=== PATIENT | female | born 1955 | race Caucasian/White ===

== ENCOUNTER → 2023-11-01 09:21 | Outpatient (CLI) | payer MEDICARE, BC, SELFPAY ==
--- NOTE | ~2023-11-01 | MMUS_ITS ---
EXAMINATION: MM diagnostic sandie BI w selma, US breast BI complete HISTORY: Bilateral breast pain for 6 months; history of 3 bilateral benign breast biopsies TECHNIQUE: ML, MLO and CC spot and full field 3-D tomosynthesis images of both breasts were performed and synthetic 2-D images were generated. CAD analysis was submitted and interpreted. High resolution complete bilateral breast ultrasound examination including all 4 quadrants and subareolar areas was performed. COMPARISON: None BREAST PARENCHYMAL COMPOSITION: There are scattered areas of fibroglandular density. FINDINGS: MAMMOGRAPHIC FINDINGS: Clips are noted in the upper mid left breast with nearby architectural distortion and calcification o f fat necrosis most consistent with post-biopsy change. Biopsy marker is noted in the upper outer right breast. Scattered bilateral benign calcifications. Approximately 7 mm partially circumscribed mass is noted in the anterior aspect of the upper outer qu adrant of the right breast with nearby biopsy marker. Low-density circumscribed approximately 5.6 mm opacity is noted posteriorly in the lower inner quadra nt of the left breast. ULTRASOUND: Right breast: 1:00 6 cm from nipple: 9.4 x 9.5 mm circumscribed irregular mass with prominent common flow signal/in ternal vascularity. No posterior shadowing is noted. 11:00 6 cm from nipple: Parallel circumscribed hypoechoic 4.5 x 8 x 7.2 mm mass with internal vascula rity, no posterior shadowing Left breast: 12:00 6 cm from nipple: There is some irregularity without defined mass or internal vascularity, like ly postbiopsy scarring 11:00 7 cm from nipple: Rounded 2.7 mm sonolucent lesion without internal vascularity or posterior sh adowing, most likely benign 2:00 6 cm from nipple: 2 x 2.3 x 2.7 mm circumscribed hypoechoic lesion without internal vascularity or posterior shadowing. IMPRESSION: 1. Bilateral mammographic and sonographic findings 2. Comparison with prior breast imaging examinations including any available mammograms and ultrasoun d examinations is recommended BI-RADS Category 0: Incomplete: Needs additional imaging evaluation. Reviewed, dictated and finalized at location A. C PASTOR IMPRESSION: 1. Bilateral mammographic and sonographic findings 2. Comparison with prior breast imaging examinations including any available ma mmograms and ultrasound examinations is recommended BI-RADS Category 0: Incomplete: Needs additional imaging evaluation.
== END ==
PROVIDERS: PCP Family Medicine; Visit Provider Physician Assistant
DX: N64.4 Mastodynia (principal); R92.8 Other abnormal and inconclusive findings on diagnostic imaging of breast
CPT/HCPCS: 76641; 77062; 77066; G0279

== ENCOUNTER 2023-11-17 10:32 | Outpatient (CLI) | payer MEDICARE, BC, SELFPAY ==
--- NOTE | ~2023-11-17 | MR_ITS ---
MR breast BI wo/w con 11/17/2023 16:08 CDT INDICATION: Abnormal right breast masses seen on prior ultrasound and mammogram. TECHNIQUE: MRI of the breasts perform using standard protocol pre-and post IV contrast with the follo wing sequences: Axial T2 STIR, axial T1, axial vibrant T1 with fat suppression precontrast and multip hasic postcontrast. 20 cc MultiHance administered intravenously. COMPARISON: Comparison to multiple prior studies sequentially, with oldest reviewed study dated 09/23. FINDINGS: Right breast: There are no abnormalities on the precontrast sequences. There is moderate background p arenchymal enhancement. In the upper outer quadrant of the right breast there is an irregular shaped mass which is hyperintense on T2 and hypointense on T1 with heterogeneous rapid washout enhancement. This mass located 7.6 cm posterior to the nipple at 11:00, middle third of the breast and measures 1. 7 x 1.7 x 1.3 cm. This is likely a conglomerate finding of the 2 masses described by prior ultrasound at 11:00, 6 cm from the nipple on prior study. In the upper inner quadrant of the right breast is a focal area of decreased T1 and T2 signal with ra pid washout enhancement. This enhancement is not mass like measuring 10 x 7 x 7 mm with irregular kareen ear shape, most likely benign vascular enhancement. No evidence of signal abnormalities in the axillary or internal mammary node distributions. LEFT BREAST: No signal abnormalities on precontrast sequences. There is moderate background parenchy mal enhancement. No enhancing lesions following contrast administration. No areas of enhancement m eeting threshold criteria on CAD analysis. No evidence of signal abnormalities in the axillary or i nternal mammary node distributions.] IMPRESSION: 1: Right breast: Irregular shaped abnormally enhancing mass of the right breast located in the upper outer quadrant at approximately 11:00 measuring up to 1.7 cm. This likely corresponds to adjacent ma sses seen on prior ultrasound dated 11/01/2023. Recommend ultrasound-guided right breast biopsies of these masses. Serpiginous somewhat linear enhancement in the upper inner quadrant of the right breast is likely benign vascular calcification. 2: Left breast: Negative. No evidence of malignancy. BI-RADS category 2. Recommend annual mammogr aphy follow-up. BI-RADS CATEGORY 4-SUSPICIOUS ABNORMALITY RECOMMENDATION: Ultrasound-guided right breast biopsies recommended of separate masses located at 11: 00, 6 cm from the nipple. Reviewed, dictated and finalized at location A. IMPRESSION: 1: Right breast: Irregular shaped abnormally enhancing mass of the right breas t located in the upper outer quadrant at approximately 11:00 measuring up to 1. 7 cm. This likely corresponds to adjacent masses seen on prior ultrasound dated 11/01/2023. Recommend ultrasound-guided right breast biopsies of these masses. Serpiginous somewhat linear enhancement in the upper inner quadrant of the rig ht breast is likely benign vascular calcification. 2: Left breast: Negative. No evidence of malignancy. BI-RADS category 2. Re commend annual mammography follow-up. BI-RADS CATEGORY 4-SUSPICIOUS ABNORMALITY RECOMMENDATION: Ultrasound-guided right breast biopsies recommended of separate masses located at 11:00, 6 cm from the nipple.
== END 2023-11-17 10:33 | disposition home or self-care (01) ==
PROVIDERS: PCP Family Medicine; Visit Provider Surgery
DX: N63.11 Unspecified lump in the right breast, upper outer quadrant (principal); R92.8 Other abnormal and inconclusive findings on diagnostic imaging of breast; N60.99 Unspecified benign mammary dysplasia of unspecified breast; F17.210 Nicotine dependence, cigarettes, uncomplicated; Z98.890 Other specified postprocedural states; Z80.3 Family history of malignant neoplasm of breast
CPT/HCPCS: 77049; A9577; C8908

== ENCOUNTER 2024-02-09 08:33 | Outpatient (CLI) | payer MEDICARE, BC, SELFPAY ==
[2023-12-16 10:17] LABS: Basophils Absolute Auto 0.1 K/mm3 (0.0-0.1); Basophils Percent Auto 1.2 % (0.2-1.2); Eosinophils Percent Auto 0.6 % (0-4.4); Hematocrit 38.5 % (37.0-47.0); Hemoglobin 13.1 g/dL (12.0-15.0); Immature Granulocyte Absolute 0.02 K/mm3 (0.00-0.031); Immature Granulocyte Percent A 0.4 % (0-0.5); Immature Platelet Fraction Pct 17.8 % (0.9-11.2); Lymphocytes Absolute Auto 1.31 K/mm3 (0.9-3.2); Lymphocytes Percent Auto 25.2 % (18.3-44.2); Mean Corpuscular Hemoglobin 33.5 pg (26-34); Mean Corpuscular Volume 98.5 fl (80-100); Mean Platelet Volume 13.2 fl (7.4-10.4); Monocytes Absolute Auto 0.5 K/mm3 (0.1-0.6); Monocytes Percent Auto 9.4 % (2.6-8.5); Neutrophils Absolute Auto 3.3 K/mm3 (1.3-6.7); Neutrophils Percent Auto 63.2 % (45.5-73.1); Platelet Count Result 157 k/mm3 (150-375); Red Blood Count 3.91 M/mm3 (4.2-5.4); Red Cell Distribution Width 14.3 % (11.5-14.5); White Blood Count 5.2 K/mm3 (4.5-10.0)
[2023-12-16 10:31] LABS: Albumin Level 4.1 g/dL (3.5-5.1); Anion Gap 7 mmol/L (4-12); Aspartate Amino Transferase 17 U/L (14-36); Calcium 9.3 mg/dL (8.4-10.2); Carbon Dioxide 26 mmol/L (22-30); Chloride 109 mmol/L (98-107); Glucose 90 mg/dL (65-110); HDL Direct 39 mg/dL; Sodium 142 mmol/L (137-145)
[2023-12-16 10:42] LABS: LDL Cholesterol Direct 65 mg/dL
[2023-12-16 11:07] LABS: Hemoglobin A1C 4.7 % (<5.7)
[2023-12-16 11:08] LABS: Alanine Aminotransferase 13 U/L (6-35); Alkaline Phosphatase 114 U/L (38-126); Blood Urea Nitrogen 13 mg/dL (7-17); Cholesterol 117 mg/dL (0-200); Estimated Glomerular Filt Rate 49; Potassium 4.3 mmol/L (3.4-5.0); Triglycerides 120 mg/dL (<150)
--- NOTE | ~2024-02-09 | MMUS_ITS ---
US breast biopsy RT w image, MM post biopsy diagnostic RT EXAMINATION: US GUIDED NEEDLE BIOPSY WITH VACUUM ASSISTANCE DATE: 02/09/2024 10:06 CDT INDICATION: Right breast masses seen on prior examination. Ultrasound-guided core biopsy is requeste d to evaluate for malignancy. TECHNIQUE AND FINDINGS: The risks and potential benefits of the procedure were discussed with the patient, and written inform ed consent was obtained. After sterile preparation of the right breast, 1% lidocaine was utilized fo r local anesthesia. 1% lidocaine with epinephrine was used for deep anesthesia. There are 2 contiguous masses in the right breast at 11:00, 6 cm from the nipple. Both nodules were b iopsied at the same time. A 10G vacuum-assisted biopsy gun needle was advanced through to the outer e dge of the region of interest from a superior approach utilizing sonographic guidance. A total of 4 tissue core samples were obtained through the lesion. An Inrad tissue marker clip was then placed at the biopsy site. Hemostasis was achieved. The patient tolerated procedure well and there was no evidence of immediate complication. The patien t was given verbal instructions partly is from the department. Right breast mammograms to document t issue marker clip placement. The tissue samples were submitted to surgical pathology for histologic a nalysis. IMPRESSION: 1. Successful ultrasound-guided vacuum-assisted biopsy of right breast mass with tissue marker place ment. Please refer to pathology report for histologic analysis. Reviewed, dictated and finalized at location B. IMPRESSION: 1. Successful ultrasound-guided vacuum-assisted biopsy of right breast mass wi th tissue marker placement. Please refer to pathology report for histologic alex lysis.
--- NOTE | ~2024-02-09 | US_ITS ---
US breast LT limited 02/09/2024 08:59 Indication: Second look evaluation of shadowing area in the left breast Procedure: High-resolution Limited ultrasound of the left breast Comparison: MRI dated 11/17/2023 and diagnostic mammogram dated 11/01/2023 Findings: At 11:00, 7 cm from the nipple there is irregular shadowing with associated calcification i n the area of previous surgical scar. This corresponds to stable architectural distortion seen on sandie mogram, consistent with postoperative change.. No other discrete masses are identified. Impression: 1: Irregular shadowing with associated calcification at the 11:00 position of the left breast, 7 cm f rom the nipple. This corresponds to a surgical scar from previous benign biopsy. BI-RADS CATEGORY 2 - BENIGN FINDINGS Reviewed, dictated and finalized at location B. Impression: 1: Irregular shadowing with associated calcification at the 11:00 position of t he left breast, 7 cm from the nipple. This corresponds to a surgical scar from previous benign biopsy. BI-RADS CATEGORY 2 - BENIGN FINDINGS
== END 2024-02-09 08:34 | disposition home or self-care (01) ==
PROVIDERS: PCP Family Medicine; Referring Provider Physician Assistant; Visit Provider Surgery
DX: D49.3 Neoplasm of unspecified behavior of breast (principal); I10 Essential (primary) hypertension; R73.9 Hyperglycemia, unspecified; E78.5 Hyperlipidemia, unspecified; Z72.0 Tobacco use
CPT/HCPCS: 19083; 36415; 76642; 77065; 80053; 80061; 83036; 85025; 85055; 88305; 88342; A4648

== ENCOUNTER 2024-02-23 16:08 | Outpatient (CLI) | payer MEDICARE, BC, SELFPAY ==
[2024-02-23 16:22] LABS: Kit Draw Collected
== END 2024-02-23 16:09 | disposition home or self-care (01) ==
LOC: ANHLAB 16:10
PROVIDERS: Visit Provider Internal Medicine Hematology & Oncology
DX: C50.911 Malignant neoplasm of unspecified site of right female breast (principal)
CPT/HCPCS: 36415

== ENCOUNTER 2024-04-28 09:01 | Outpatient (CLI) | payer MEDICARE, BC, SELFPAY ==
--- NOTE | 2024-04-28 09:11 | ECG_ITS ---
Test Date: 2024-04-28 09:16:50 Measurements Intervals Cougar Rate: 75 P: 52 MD: 167 QRS: -6 QRSD: 86 T: 9 QT: 350 QTc: 393 Interpretive Statements SINUS RHYTHM LOW QRS VOLTAGE IN PRECORDIAL LEADS [QRS DEFLECTION < 1.0 mV IN CHEST LEADS] POSSIBLE ANTERIOR MYOCARDIAL INFARCTION [30 ms Q WAVE IN V3/V4, OR R < 0.2 mV IN V4], PROBABLY OLD No previous ECG available for comparison Electronically Signed On 04-29-2024 14:21:14 CDT by Koen iVctor M.D.
[2024-04-28 09:30] LABS: Hematocrit 36.5 % (37.0-47.0); Hemoglobin 12.5 g/dL (12.0-15.0)
== END 2024-04-28 09:02 | disposition home or self-care (01) ==
PROVIDERS: Anesthesiology; PCP Family Medicine; Visit Provider Surgery
DX: Z01.818 Encounter for other preprocedural examination (principal); C50.911 Malignant neoplasm of unspecified site of right female breast; I10 Essential (primary) hypertension
CPT/HCPCS: 36415; 85014; 85018; 86850; 86900; 86901; 93005

== ENCOUNTER 2024-05-10 07:07 | Outpatient (CLI) | payer MEDICARE, BC, SELFPAY ==
--- NOTE | ~2024-05-10 | NM_ITS ---
EXAMINATION: NM gee stress w perfusion DATE: 05/10/2024 09:45 INDICATION: Abnormal EKG TECHNIQUE: Rest images were obtained following intravenous administration of 11.3 mCi Tc99m tetrofosm in (Myoview). The patient was infused intravenously with Lexiscan (Regadenoson). Then, 35 mCi Tc99m t etrofosmin (Myoview) was administered intravenously, and stress images were obtained. Data was recons tructed into short axis and horizontal and vertical long axis SPECT images. Gated SPECT images were a lso obtained. COMPARISON: None. FINDINGS: There is no definite reversible or fixed perfusion abnormality to suggest ischemia or infar ction. There is normal left ventricular chamber size, wall motion and ejection fraction. Left ventr icular ejection fraction measures >70%. IMPRESSION: 1. Normal myocardial perfusion at rest and during stress. 2. Left ventricular ejection fraction measuring >70%. Reviewed, dictated and finalized at location B.
--- NOTE | 2024-05-10 07:13 | EST_ITS ---
Patient Info Name: Claudio Negrete Age: 68 years : 1955 Gender: Female Ht: 64 in Wt: 239 lbs BSA: 2.27 m2 HR: 54 bpm BP: 175 / 73 mmHg Exam Date: 05/10/2024 8:01 AM Exam Location: Echo Lab Patient Status: Outpatient Admit Date: 05/10/2024 Staff Ordering Physician: Zamzam Amezcua PA-C Attending Provider: Zamzam Amezcua PA-C Exercise Technologist: Siria Mendiola RDCS Exercise Physician: Felix Carey DO Exam Type: CA stress gee w NM Study Info A regadenoson stress test was performed. Summary 1. 1. Negative lexiscan stress test for ischemic ST changes by ECG criteria. 2. 2. Baseline hypertension. 3. 3. Nuclear scan to follow and will be reported separately. Please correlate with it. 4. 4. Patient informed of the above results. Protocol: Lexiscan Stress ECG Details Stage: REST Duration (min): 9 min : 28 sec HR (bpm): 56 SBP (mmHg): 175 DBP (mmHg): 73 Stage: REST Duration (min): 14 min : 3 sec HR (bpm): 67 SBP (mmHg): 175 DBP (mmHg): 73 Stage: STAGE 1 Duration (min): 0 min : 59 sec HR (bpm): 96 SBP (mmHg): 171 DBP (mmHg): 103 Stage: RECOVERY Duration (min): 1 min : 0 sec HR (bpm): 100 SBP (mmHg): 171 DBP (mmHg): 103 Stage: RECOVERY Duration (min): 2 min : 0 sec HR (bpm): 101 SBP (mmHg): 171 DBP (mmHg): 103 Stage: RECOVERY Duration (min): 3 min : 0 sec HR (bpm): 98 SBP (mmHg): 174 DBP (mmHg): 97 Stage: RECOVERY Duration (min): 3 min : 24 sec HR (bpm): 93 SBP (mmHg): 174 DBP (mmHg): 97 Rest HR: 67 bpm Peak HR: 106 bpm Rest Sys BP: 175 mmHg Peak Sys BP: 174 mmHg Max Pred HR: 150 bpm % Max Pred HR: 71 % Target HR: 128 bpm Max RPP: 18,444 bpm*mmHg Termination Reason: Completed protocol Cardiac Symptoms: Shortness of breath Total Time: 1 min : 0 sec Rest Emerson BP: 73 mmHg Peak Emerson BP: 97 mmHg Total Dose: 0.4 mg Resting ECG Sinus rhythm. Stress ECG No ST changes. Arrhythmias None. Report Signatures
== END 2024-05-10 07:08 | disposition home or self-care (01) ==
PROVIDERS: PCP Family Medicine; Visit Provider Physician Assistant
DX: R94.31 Abnormal electrocardiogram [ECG] [EKG] (principal); I10 Essential (primary) hypertension
CPT/HCPCS: 78452; 93017; A9502; J2785

== ENCOUNTER 2024-05-16 00:55 | Day surgery (SDC) | payer MEDICARE, BC, SELFPAY ==
--- NOTE | 2024-04-27 12:13 | PC.NURSE ---
Report to the Outpatient Waiting Room, entrance under the green pavilion located off [facility], at time _7:00 AM on date 05/03/24 . Planned Procedure Time: _9:00 AM .? NUCLEAR MED AT 8:00 AM Time changes happen often and if your time is changed the preop area will call you the afternoon before. - You and your visitor will be asked to self-screen and do not enter if you have any COVID symptoms. Please call surgeon if you need to reschedule. - A mask is optional within the hospital at this time. NOTHING TO EAT OR DRINK 8 PRIOR TO SURGERY PER DR YADAV (0100) Take only the following medications with a SIP of water on the morning of surgery: __NONE DO NOT STOP ANY OF YOUR OTHER PRESCRIPTION MEDICATIONS PRIOR TO SURGERY EXCEPT THE FOLLOWING Medications to discontinue per physician __PT STATES HOLD ASPIRIN PER DR STEVENS LAST DOSE 04/16/24. HOLD ALL VITAMINS 3 DAYS PRE OP .LAST DOSE 04/29/24 Please no make-up, nail bulgarian, hairspray, perfume, deodorant, or body powder the day of surgery.? No jewelry (including any body piercings) or valuables the day of surgery, leave them at home.? Please take a shower or bath the night before, or the morning of, surgery with an antibacterial soap.? Wear comfortable, loose fitting clothing.? Children are encouraged to wear pajamas. - Jewelry must be removed prior to entering the operating room.? Rings and piercings that are not removed may be cut off. - The hospital will not accept responsibility for valuables.? - Please leave all valuables, including medications, at home the day of surgery. If you are going home after surgery, a licensed straddle bug driver must drive you home.? - NO public transportation without another adult if you receive anesthesia. - We recommend that an adult stay with you for 24 hours following discharge. - We also recommend that you do not drive, make important decision, drink alcoholic beverages, or take any drugs that were not prescribed by your health care provider for at least 24 hours after your discharge time. . Follow any additional instructions given to you from your surgeon. Telephone instructions given to __PATIENT and asked if any additional questions and then verbalized understanding. Patient advised to call surgeon office or pre surgery nurse liaison [phone] if any additional questions.
[2024-04-27 12:25] VITALS: BMI 41.0
--- NOTE | 2024-05-08 10:11 | PC.NURSE ---
Report to the Outpatient Waiting Room, entrance under the green pavilion located off [facility], at time _7 AM on date _05/16/24 . Planned Procedure Time: _9 AM .? NUCLEAR MED AT 0800 Time changes happen often and if your time is changed the preop area will call you the afternoon before. - You and your visitor will be asked to self-screen and do not enter if you have any COVID symptoms. Please call surgeon if you need to reschedule. - A mask is optional within the hospital at this time. Patients may have clear liquids (water, carbonated beverages, clear teas, apple juice) until 3 hours prior to surgery with a maximum of 20 ounces. - No food from midnight until time of surgery and no smoking - Infants may have breast milk until 4 hours before surgery, infant formula 6 hours prior to surgery. - Children will be allowed to drink immediately following surgery.? If applicable, please bring a bottle or sippy cup to assist with drinking. Juice, water, soda, and popsicles are readily available.? For infants on formula, please bring formula the day of surgery.? Pacifiers are allowed. Take only the following medications with a SIP of water on the morning of surgery: ____NONE DO NOT STOP ANY OF YOUR OTHER PRESCRIPTION MEDICATIONS PRIOR TO SURGERY EXCEPT THE FOLLOWING Medications to discontinue per physician _PT STATES HOLD ASPIRIN 7 DAYS PRE OP PER DR STEVENS.LAST DOSE 05/08/24 HOLD ALL VITAMINS 3 DAYS PRE OP .LAST DOSE 05/12/24 Please no make-up, nail ukrainian, hairspray, perfume, deodorant, or body powder the day of surgery.? No jewelry (including any body piercings) or valuables the day of surgery, leave them at home.? Please take a shower or bath the night before, or the morning of, surgery with an antibacterial soap.? Wear comfortable, loose fitting clothing.? Children are encouraged to wear pajamas. - Jewelry must be removed prior to entering the operating room.? Rings and piercings that are not removed may be cut off. - The hospital will not accept responsibility for valuables.? - Please leave all valuables, including medications, at home the day of surgery. If you are going home after surgery, a licensed new autos delivery driver must drive you home.? - NO public transportation without another adult if you receive anesthesia. - We recommend that an adult stay with you for 24 hours following discharge. - We also recommend that you do not drive, make important decision, drink alcoholic beverages, or take any drugs that were not prescribed by your health care provider for at least 24 hours after your discharge time. For Pediatric surgeries, we recommend two adults accompany the child home. Follow any additional instructions given to you from your surgeon. Telephone instructions given to __PT and asked if any additional questions and then verbalized understanding. Patient advised to call surgeon office or pre surgery nurse liaison [phone] if any additional questions.
--- NOTE | 2024-05-08 10:13 | PC.NURSE ---
PT STATES NO CHANGE IN HEALTH HX SINCE LAST INTERVIEW ON 04/27/24
--- NOTE | 2024-05-15 19:29 | WPDANESEPPF ---
Anes - Initial Pre Proc Eval Procedure: Operation Date: 05/16/24 07:30 Proposed Procedures p Right Total Mastectomy, Prophylactic Left Mastectomy, Right [place] Lymph Node Biopsy with Lymphoseek, Possible Methylene Blue Injection for [place] Node Mapping, - Giovana Espinoza MD s Bilateral Breast Immediate Prepectoral Implant Reconstruction with Acellular Dermal Matrix, Possible Bilateral Tissue Workcell Operator Placement - Duran Roldan MD Date/Time: 05/15/24 19:29 Surgeon: Giovana Espinoza MD Pre Op Diagnosis: right breast CA Patient Data Age: 68 Gender: F Height: 1.63 m Weight: 108.45 kg Last Vital Signs Temp 36.2 C L 05/16/24 07:39 Pulse 80 05/16/24 07:39 Resp 16 05/16/24 07:39 BP 148/84 H 05/16/24 07:39 Pulse Ox 98 05/16/24 07:39 O2 Del Method Room Air 05/16/24 07:39 Allergies Allergy/AdvReac Type Severity Reaction Status Date / Time tramadol Allergy Intermediate Hives Verified 05/16/24 07:48 propoxyphene Allergy Unknown Hives Verified 05/16/24 07:46 Home Medications Medication Instructions Recorded Confirmed Type omeprazole 40 mg capsule,delayed See Rx Instructions .Route 03/15/24 05/08/24 Rx release .COMPLEX #180 caps losartan 50 mg tablet See Rx Instructions .Route 04/07/24 05/08/24 Rx .COMPLEX #90 tabs aspirin 81 mg tablet,delayed 81 mg PO DAILY 04/27/24 05/16/24 History release (Adult Low Dose Aspirin) atorvastatin 40 mg tablet 40 mg PO HS 04/27/24 05/08/24 History multivitamin (Daily Multi-Vitamin 1 tablet PO DAILY 04/27/24 05/16/24 History tablet) cephalexin 500 mg capsule 500 mg PO Q8H #21 caps 05/16/24 Rx hydrocodone 5 mg-acetaminophen 325 1 tablet PO Q6H PRN pain #16 tabs 05/16/24 Rx mg tablet Patient hx anesthesia problems: post op nausea/vomiting Family hx anesthesia problems: none Results Review: All pre-operative results and documents have been reviewed as part of the pre-operative evaluation. [facility] Past Medical History Medical History Benign essential HTN Cerebral atherosclerosis Chronic pain of left knee CVA, old, cognitive deficits Essential (primary) hypertension Facial weakness S/P CVA (cerebrovascular accident) Hypoxemia MDD (major depressive disorder), recurrent episode, mild Mixed hyperlipidemia LENNIE (obstructive sleep apnea) Other chronic pain Primary osteoarthritis of both knees Tobacco abuse Tobacco user Surgical History Surgical History Hx of total knee arthroplasty Family History Family History Father Diabetes mellitus Family history of malignant neoplasm, Onset Age: 84 Mother Hypertension Patient's mother is in good health Family history of cardiovascular disease Family history of arthritis Family history of malignant neoplasm Heart disease Cerebrovascular accident Sibling Hypertension Patient's sister is , Onset Age: 43 Patient's brother is in good health Patient's brother is , Onset Age: 22 Family history of cardiovascular disease Grandparent Breast cancer Diabetes mellitus Hypertension Heart disease Throat cancer Social History Social History Social History: Smoking packs per day: 2 Smoking cigarettes per day: 40.0 Years smoked: 25 Smoking pack-years: 50.00 Smoking status: Former smoker Tobacco type: cigarettes Second hand tobacco smoke exposure: No Smoking end date: 08/30/17 Alcohol intake: current Alcohol use details: Occasionally Substance use: never Substance use type: does not use Do You Feel Safe in your Home?: Yes Lack of Transportation: No Lack of Food: Never True Current Housing: I Have Housing Concerned About Future Housing: No Difficulty Paying Gas/Electric Bills: No Difficulty Paying for Meds: No Currently Une
[2024-05-16] VITALS (16 sets, daily range): BP systolic 147–214; BP diastolic 71–99; PULSE 67–102; RESP 13–18; TEMP 35.9–36.4; O2SAT 93–100; BMI 41.3
[2024-05-16] MEDS: LIDOCAINE/PRILOCAINE CREAM 2.5-2.5% TUBE 1 EACH TOPICAL (06:30)
[2024-05-16] MEDS: ACETAMINOPHEN 500 MG TABLET 1000 MG PO (07:00)
--- NOTE | 2024-05-16 07:04 | WPDHPUPDATE1 ---
History and Physical Update Update Date/Time: 05/16/24 07:04 Patient seen and examined in pre-operative holding area. No interval change in medical history or symptoms. Patient remembers previous discussion of benefits and alternatives to procedure. Continues to desire to proceed with bilateral breast reconstruction with silicone implants and acellular dermal matrix, possible tissue expanders at time of mastectomy . I reviewed the risks including but not limited to bleeding ,infection, asymmetry, undesireable cosmetic appearance, partial/total skin/nipple loss, no change or worsening of symptoms, change in sensation, device failure, capsular contracture. I discussed the possible use of assistants and their level of participation in the case. Patient stated understanding and signed the consent form wishing to proceed
--- NOTE | 2024-05-16 07:09 | WPDHPUPDATE1 ---
History and Physical Update Update Date/Time: 05/16/24 07:09 - right total mastectomy, left prophylactic total mastectomy, right sentinel lymph node biopsy with Lymphoseek, possible methylene blue injection for sentinel lymph node mapping and immediate reconstruction by Plastic surgery History and Physical has been reviewed, including an updated exam of the patient. There are NO changes in the patient's condition. Risks, benefits, and alternatives have been discussed and questions answered. Patient agrees to proceed with procedure.
--- NOTE | 2024-05-16 07:24 | WPDANESEPPF ---
Anes - Initial Pre Proc Eval Procedure: Operation Date: 05/16/24 07:30 Proposed Procedures p Right Total Mastectomy, Prophylactic Left Mastectomy, Right [place] Lymph Node Biopsy with Lymphoseek, Possible Methylene Blue Injection for [place] Node Mapping, - Giovana Espinoza MD s Bilateral Breast Immediate Prepectoral Implant Reconstruction with Acellular Dermal Matrix, Possible Bilateral Tissue Validation Specialist Placement - Duran Roldan MD Date/Time: 05/16/24 07:24 Surgeon: Giovana Espinoza MD Pre Op Diagnosis: right breast CA Patient Data Age: 68 Gender: F Height: 1.63 m Weight: 108.45 kg Allergies Allergy/AdvReac Type Severity Reaction Status Date / Time propoxyphene Allergy Unknown Hives Verified 05/08/24 10:08 tramadol AdvReac Intermediate Hives Verified 05/08/24 10:08 Home Medications Medication Instructions Recorded Confirmed Type omeprazole 40 mg capsule,delayed See Rx Instructions .Route 03/15/24 05/08/24 Rx release .COMPLEX #180 caps losartan 50 mg tablet See Rx Instructions .Route 04/07/24 05/08/24 Rx .COMPLEX #90 tabs aspirin 81 mg tablet,delayed 81 mg PO DAILY 04/27/24 05/08/24 History release (Adult Low Dose Aspirin) atorvastatin 40 mg tablet 40 mg PO HS 04/27/24 05/08/24 History multivitamin (Daily Multi-Vitamin 1 tablet PO DAILY 04/27/24 05/08/24 History tablet) Patient hx anesthesia problems: post op nausea/vomiting Family hx anesthesia problems: none Prior surgeries: pt. stated that she had one episode of nausea with her knee surgery Results Review: All pre-operative results and documents have been reviewed as part of the pre-operative evaluation. [facility] Past Medical History Medical History Benign essential HTN Cerebral atherosclerosis Chronic pain of left knee CVA, old, cognitive deficits Essential (primary) hypertension Facial weakness S/P CVA (cerebrovascular accident) Hypoxemia MDD (major depressive disorder), recurrent episode, mild Mixed hyperlipidemia LENNIE (obstructive sleep apnea) Other chronic pain Primary osteoarthritis of both knees Tobacco abuse Tobacco user Surgical History Surgical History Hx of total knee arthroplasty Family History Family History Father Diabetes mellitus Family history of malignant neoplasm, Onset Age: 84 Mother Hypertension Patient's mother is in good health Family history of cardiovascular disease Family history of arthritis Family history of malignant neoplasm Heart disease Cerebrovascular accident Sibling Hypertension Patient's sister is , Onset Age: 43 Patient's brother is in good health Patient's brother is , Onset Age: 22 Family history of cardiovascular disease Grandparent Breast cancer Diabetes mellitus Hypertension Heart disease Throat cancer Social History Social History Social History: Smoking packs per day: 2 Smoking cigarettes per day: 40.0 Years smoked: 25 Smoking pack-years: 50.00 Smoking status: Former smoker Tobacco type: cigarettes Second hand tobacco smoke exposure: No Smoking end date: 08/30/17 Alcohol intake: current Alcohol use details: Occasionally Substance use: never Substance use type: does not use Do You Feel Safe in your Home?: Yes Lack of Transportation: No Lack of Food: Never True Current Housing: I Have Housing Concerned About Future Housing: No Difficulty Paying Gas/Electric Bills: No Difficulty Paying for Meds: No Currently Unemployed: YES Education: High School Diploma/GED Difficulty w/ Childcare or Family Care: No Living arrangements: with family Occupation/Education: retired Gender identity (if verbalized by the patient): Female Sexual Orientation (if Verbalized by the Patient): Harish
[2024-05-16] MEDS: LACTATED RINGERS 1,000 ML 30 ML IV CONT ×2 (07:30→11:49)
--- NOTE | 2024-05-16 07:41 | WPDANESEPPF ---
Anes - Initial Pre Proc Eval Procedure: Operation Date: 05/16/24 07:30 Proposed Procedures p Right Total Mastectomy, Prophylactic Left Mastectomy, Right [place] Lymph Node Biopsy with Lymphoseek, Possible Methylene Blue Injection for [place] Node Mapping, - Giovana Espinoza MD s Bilateral Breast Immediate Prepectoral Implant Reconstruction with Acellular Dermal Matrix, Possible Bilateral Tissue Manager Performance Improvement Placement - Duran Roldan MD Date/Time: 05/16/24 07:41 Surgeon: Giovana Espinoza MD Pre Op Diagnosis: right breast CA Patient Data Age: 68 Gender: F Height: 1.63 m Weight: 108.45 kg Last Vital Signs Temp 36.2 C L 05/16/24 07:39 Pulse 80 05/16/24 07:39 Resp 16 05/16/24 07:39 BP 148/84 H 05/16/24 07:39 Pulse Ox 98 05/16/24 07:39 O2 Del Method Room Air 05/16/24 07:39 Allergies Allergy/AdvReac Type Severity Reaction Status Date / Time propoxyphene Allergy Unknown Hives Verified 05/08/24 10:08 tramadol AdvReac Intermediate Hives Verified 05/08/24 10:08 Home Medications Medication Instructions Recorded Confirmed Type omeprazole 40 mg capsule,delayed See Rx Instructions .Route 03/15/24 05/08/24 Rx release .COMPLEX #180 caps losartan 50 mg tablet See Rx Instructions .Route 04/07/24 05/08/24 Rx .COMPLEX #90 tabs aspirin 81 mg tablet,delayed 81 mg PO DAILY 04/27/24 05/08/24 History release (Adult Low Dose Aspirin) atorvastatin 40 mg tablet 40 mg PO HS 04/27/24 05/08/24 History multivitamin (Daily Multi-Vitamin 1 tablet PO DAILY 04/27/24 05/08/24 History tablet) Patient hx anesthesia problems: post op nausea/vomiting Family hx anesthesia problems: none Results Review: All pre-operative results and documents have been reviewed as part of the pre-operative evaluation. [facility] Past Medical History Medical History Benign essential HTN Cerebral atherosclerosis Chronic pain of left knee CVA, old, cognitive deficits Essential (primary) hypertension Facial weakness S/P CVA (cerebrovascular accident) Hypoxemia MDD (major depressive disorder), recurrent episode, mild Mixed hyperlipidemia LENNIE (obstructive sleep apnea) Other chronic pain Primary osteoarthritis of both knees Tobacco abuse Tobacco user Surgical History Surgical History Hx of total knee arthroplasty Family History Family History Father Diabetes mellitus Family history of malignant neoplasm, Onset Age: 84 Mother Hypertension Patient's mother is in good health Family history of cardiovascular disease Family history of arthritis Family history of malignant neoplasm Heart disease Cerebrovascular accident Sibling Hypertension Patient's sister is , Onset Age: 43 Patient's brother is in good health Patient's brother is , Onset Age: 22 Family history of cardiovascular disease Grandparent Breast cancer Diabetes mellitus Hypertension Heart disease Throat cancer Social History Social History Social History: Smoking packs per day: 2 Smoking cigarettes per day: 40.0 Years smoked: 25 Smoking pack-years: 50.00 Smoking status: Former smoker Tobacco type: cigarettes Second hand tobacco smoke exposure: No Smoking end date: 08/30/17 Alcohol intake: current Alcohol use details: Occasionally Substance use: never Substance use type: does not use Do You Feel Safe in your Home?: Yes Lack of Transportation: No Lack of Food: Never True Current Housing: I Have Housing Concerned About Future Housing: No Difficulty Paying Gas/Electric Bills: No Difficulty Paying for Meds: No Currently Unemployed: YES Education: High School Diploma/GED Difficulty w/ Childcare or Family Care: No Living arrangements: with family Occupation/Education: re
[2024-05-16] MEDS: ceFAZolin 2 GM/D5W 50 ML 2 GM/50 ML BAG IVPB (08:00)
--- NOTE | 2024-05-16 08:45 | W.PM.PROC2 ---
Procedure Note - Detailed Date of Procedure 05/16/24 Pre-op Diagnosis right breast CA Post-op Diagnosis Same (acquired absence bilateral breasts and nipples) Procedure Performed bilateral breast recon with silicone implants and ADM Surgeon Duran Roldan MD Pbx Installer greyson manrique pa-c Anesthesia General Description of Procedure Patient was seen and examined in the preoperative holding area and the consent form was signed. The breasts were marked. I designed a [place] incision around the nipple-areolar complex for excision as well as addressing excess redundant tissue that was to be expected after mastectomy was completed. The patient was taken back to the operating room and placed on the table in the supine position. Time-out was performed with Anesthesia, surgeons, and staff agreeing on patient's name, site, and surgery to be performed. SCDs were placed on the lower extremity and inflated. Antibiotics were given IV. After general anesthesia was administered the breasts were prepped and draped in usual sterile fashion. Dr. Espinoza then proceeded with performing the left mastectomy utilizing my incision design to be dictated separately. After completing the left mastectomy I proceeded with irrigating with antibiotic irrigation. Hemostasis was obtained with Bovie cautery. I proceeded with sewing in a piece of large contoured perforated AlloDerm along the inframammary fold and anterior axillary line with 2-0 Vicryl suture. A an initial Sizer of 560 cc was placed to evaluate the pocket. I proceeded with further measuring and resection of the superior and inferior skin flaps to further reduce the pocket size and prevent lateral displacement of the implant. This was excised with 10 blade scalpel and Bovie cautery. I further proceeded with pexying the AlloDerm sling to the superior skin flap with 2-0 Vicryl suture to help maintain the position of this implant. Once pleased with the reduction and pocket size the Sizer was removed. I irrigated with antibiotic irrigation. Hemostasis with Bovie cautery. I placed a 10 Surinamese drain along the inframammary fold and then an on Q catheter was placed along the superior aspect of the left breast pocket. The skin was prepped Betadine and new towels were placed. I changed my gloves and rinsed instruments and antibiotic irrigation. I then proceeded with taking a Natrelle SCF-560 implant serial [id number] directly from the package after rinsing it in antibiotic irrigation and placing and in the left breast pocket under the AlloDerm in its appropriate orientation I immediately proceeded with closure of skin with 3-0 Vicryl for subcutaneous and dermal closure 4-0 Monocryl was used for subcuticular closure. The skin flaps appeared viable with good cap refill. Drain was hooked to bulb suction. 5 cc of 1% lidocaine with epinephrine and 0.5% Marcaine plain was used for initial loading dose of the on Q catheter. Length of closure was 15cm Next we took our attention to the right breast where again proceeded with performing the right mastectomy and right sentinel lymph node biopsy dictated separately by Dr. Espinoza. After this was completed I irrigated with antibiotic irrigation and hemostasis with Bovie cautery. I proceeded with selling and a 2nd piece of large perforated contoured AlloDerm along the inframammary fold and anterior axillary line with 2-0 Vicryl suture. A 560 cc Sizer was again placed and appeared to be reasonable in position compared to the reconstructed left breast. I marked the excess skin of the superior and inferior skin flaps and proceeded with resection of this excess tissue to further shape the pocket with 10 blade scalpel and Bovie cautery. The Sizer was removed. A 10 CHARLETTE was placed along the inframammary fold and on Q pump catheter placed along the superior margin of the right breast pocket. I irrigated a final time with antibiotic irrigation and ensured hemostasis with Bovie cautery. The s
[2024-05-16] MEDS: LIDO 1%/EPINEPHRINE 1:100,000 50 ML VIAL 30 ML INFILTRATE (08:55)
[2024-05-16] MEDS: BUPivacaine HCL 0.5% PF 30 ML VIAL INFILTRATE (08:55)
[2024-05-16] MEDS: NACL 0.9% IRRIG POUR BOTTLE 1,000 ML, GENTAMICIN SULFATE INJ 160 MG, ceFAZolin 2 GM IRRIGATION (08:58)
--- NOTE | 2024-05-16 10:58 | W.PM.PROC2 ---
Procedure Note - Detailed Date of Procedure 05/16/24 Pre-op Diagnosis Right breast invasive papillary carcinoma, ER positive, NE positive, HER2 negative, Post-op Diagnosis Same Procedure Performed 1. Right total mastectomy 2. Left prophylactic total mastectomy 3. Lymphoseek injection for sentinel lymph node mapping 4. Right sentinel lymph node biopsy Surgeon Giovana Espinoza MD Shadow Graph Weight Operator Vanessa Galvan PA-C Anesthesia General Description of Procedure Patient was taken to Nuclear Medicine, for lymphoseek injection. I injected total of 0.1 cc (1 mCi) into the subdermal place around the right periareolar area at 12, 3, 6 and 9 o'clock. She was then brought to the operating room suite. She was placed supine on the operating table sequential compression devices were applied. General endotracheal anesthesia was induced without difficulty. The bilateral chest area were prepped and draped in a sterile fashion. Attention was then turned to the left prophylactic side. Dr. Roldan had already previously marked incisions which included an elliptical incision encompassing the nipple-areolar complex, and dissection was then carried out in the thin areolar tissue between the subcutaneous and the breast tissue, superiorly to the? inferior border of the clavicle, medial to the lateral aspect of the sternal border, laterally to the latissimus dorsi, and inferior to the inframammary fold down to the muscle. The? breast tissue along with the pectoralis fascia was then carefully dissected off the pectoralis muscle posteriorly.? Once the entire breast was excised, it was oriented with a short stitch superior and a long stitch lateral and sent to pathology as a fresh specimen. The cavity was irrigated and hemostasis was assured. Attention was then turned to the right breast. A similar elliptical incision was made encompassing the nipple areola complex and dissection was carried down through the subcutaneous tissue into the breast tissue. Dissection was then performed in the thin areolar tissue between the subcutaneous and the breast tissue, superiorly to the? inferior border of the clavicle, medial to the lateral aspect of the sternal border, laterally to the latissimus dorsi, and inferior to the inframammary fold down to the muscle. The? breast tissue along with the pectoralis fascia was then carefully dissected off the pectoralis muscle posteriorly.?Once the entire breast was excised, it was oriented with a short stitch superior and a long stitch lateral and sent to pathology as a fresh specimen. The cavity was irrigated and hemostasis was assured. The Neoprobe was then used to scan the axilla to identify an area of highest reactivity. One node was identified and excised it using the LigaSure device. The sentinel lymph node #1 count was 51,290. axilla was then scanned again a 2nd node was identified and excised with the LigaSure. The 2nd sentinel lymph node count was 50,182. Both lymph nodes were sent to pathology as fresh specimen. The axillary wound was irrigated with saline hemostasis was assured.The case was then turned over to Dr. Roldan for immediate reconstruction with bilateral silicone implants, please refer to his procedure note for further details. All needles, instruments, and sponge counts were correct as reported by the operating room staff. Patient tolerated the procedure well with no immediate complications. Vanessa Galvan PA-C was presented and assisted with patient positioning and retraction throughout the case. Estimated Blood Loss 30 Drains Yes Pathology Yes Complications No immediate complications Condition Stable Disposition PACU [facility] Billing Surgery - Charge Forward: Surgery Billing (R [id number] / L 94 - [id number] / 32 - [id number] / 45 - [id number])
[2024-05-16] MEDS: BUPivacaine 0.5% ON-Q PUMP 335 ML INTRADERM (11:21)
[2024-05-16] MEDS: LABETALOL HCL INJ 100 MG/20 ML VIAL IV PUSH (12:36)
[2024-05-16] MEDS: fentaNYL CITRATE INJ (*CRX) 100 MCG/2 ML VIAL 25 MCG IV PUSH (13:05)
[2024-05-16] MEDS: LOSARTAN POTASSIUM 50 MG TABLET PO (13:38)
[2024-05-16] MEDS: hydrALAZINE HCL 20 MG/ML VIAL 5 MG IV PUSH (13:38)
[2024-05-16] MEDS: ONDANSETRON INJ 4 MG/2 ML VIAL IV PUSH (14:30)
[2024-05-16] MEDS: ACETAMINOPHEN 325 MG TABLET 650 MG PO ×2 (15:47→21:17)
[2024-05-16] MEDS: LACTATED RINGERS 1,000 ML 100 ML IV CONT (17:00)
[2024-05-16] MEDS: DOCUSATE SODIUM 100 MG CAPSULE PO (17:32)
--- NOTE | 2024-05-16 17:43 | ADMGEN ---
This patient, Claudio Negrete, was admitted to OB 2nd Floor Room 288-00. Patient/family oriented to hospital policies and general routines including ID bracelet, bed and alarms, visiting hours, pain management, procedures, bathroom and other care routines, personal items, smoking policy, room service/diet, and visiting hours. Information on how to activate the Rapid Response Team has been discussed. Patient/Family are encouraged to report perceived risks to care and to ask questions if they do not understand what they are told or what they should do.
[2024-05-16] MEDS: ATORVASTATIN 40 MG TABLET PO (21:16)
[2024-05-16] MEDS: CEPHALEXIN SUSPENSION 500 MG/10 ML UDBTL PO (21:18)
[2024-05-17 01:12] VITALS: BP 142/75; PULSE 79; RESP 18; TEMP 36.3; O2SAT 95
[2024-05-17 03:50] VITALS: BP 150/73; PULSE 85; RESP 18; TEMP 36.7; O2SAT 97
[2024-05-17] MEDS: ACETAMINOPHEN 325 MG TABLET 650 MG PO (04:40)
[2024-05-17 07:40] VITALS: BP 149/75; PULSE 100; RESP 16; TEMP 36.6; O2SAT 98
[2024-05-17] MEDS: DOCUSATE SODIUM 100 MG CAPSULE PO (09:34)
[2024-05-17] MEDS: LOSARTAN POTASSIUM 50 MG TABLET BY MOUTH (09:35)
--- NOTE | 2024-05-17 10:06 | PM.PNGS ---
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 Espinoza) with B immediate prepec silicone implant reconstruction with ADM. Reviewed impression and continued healing expectations. Reviewed signs/symptoms of concern. Reviewed dressing/drain/activity instructions. Pt voiced understanding and agreement. Plan 1) continue PO pain Rx 2) cephalexin BID x 7 days 3) drain care 4) discharge home 5) follow up plastics 1 week 6) breast surg follow up 2 weeks Subjective Subjective Date/Time Seen: 05/17/24 7:45 Interval history: pt seen at bedside. no concerns overnight. pain well managed with tylenol. denies fever/chills, bleeding/redness, interval change in breast size, SOB, chest pain, BLE pain. tolerating PO diet. ambulating and voiding without issue. Exam Narrative: sitting comfortably in bed, comes to sitting position unassisted Const: General: cooperative, healthy appearing, comfortable, alert and awake Orientation/consciousness: oriented to person, oriented to place and oriented to time HENMT: Head: normal to inspection Eyes: Other: sclera anicteric Neck: Neck: normal visual inspection, no lymphadenopathy, trachea midline and no JVD Chest: Other: surg bra c/d/i, tegaderm/gauze dressings c/d/i, drains maintaining neg pressure with minimal dark sersosanguinous drainage. on-q catheters ini place. implants in place bilaterally with symmetric medial and superior border. mastectomy flaps warm and well perfused with cap refill <2 sec. Resp: Effort & Inspection: normal respiratory effort Cardio: Other: RRR GI: GI Palp: No abdominal tenderness and Yes Soft to palpation Objective Data Vital Signs Vital Signs: Vital Signs - 24 hr 05/16/24 11:48 05/16/24 12:03 05/16/24 12:18 Temperature 35.9 C L Pulse Rate 93 90 88 Respiratory Rate 13 13 14 Blood Pressure 160/71 H 178/81 H 184/88 H Pulse Oximetry 95 97 98 Oxygen Delivery Simple Face Mask Simple Face Mask Simple Face Mask Oxygen Flow Rate 10 10 10 05/16/24 12:33 05/16/24 12:36 05/16/24 12:45 Temperature Pulse Rate 86 94 76 Respiratory Rate 14 15 Blood Pressure 214/89 H 191/77 H Pulse Oximetry 100 98 Oxygen Delivery Simple Face Mask Room Air Oxygen Flow Rate 10 05/16/24 12:53 05/16/24 13:00 05/16/24 13:15 Temperature 36.3 C L Pulse Rate 71 67 Respiratory Rate 15 14 Blood Pressure 183/83 H 192/80 H 176/83 H Pulse Oximetry 93 97 97 Oxygen Delivery Nasal Cannula Nasal Cannula Nasal Cannula Oxygen Flow Rate 2 2 2 05/16/24 13:30 05/16/24 13:45 05/16/24 14:00 Temperature Pulse Rate 70 80 78 Respiratory Rate 16 14 13 Blood Pressure 196/88 H 176/84 H 191/78 H Pulse Oximetry 95 94 96 Oxygen Delivery Nasal Cannula Nasal Cannula Nasal Cannula Oxygen Flow Rate 2 2 2 05/16/24 14:30 05/16/24 15:10 05/16/24 15:00 Temperature 36.1 C L 36.1 C L Pulse Rate 88 74 Respiratory Rate 18 16 Blood Pressure 161/99 H 147/79 H Pulse Oximetry 100 99 Oxygen Delivery Room Air Oxygen Flow Rate 05/16/24 20:36 05/17/24 01:12 05/17/24 03:50 Temperature 36.4 C 36.3 C L 36.7 C Pulse Rate 102 H 79 85 Respiratory Rate 18 18 18 Blood Pressure 159/94 H 142/75 H 150/73 H Pulse Oximetry 98 95 97 Oxygen Delivery Oxygen Flow Rate 05/17/24 07:40 Temperature 36.6 C Pulse Rate 100 Respiratory Rate 16 Blood Pressure 149/75 H Pulse Oximetry 98 Oxygen Delivery Oxygen Flow Rate Intake/Output Intake/Output: Intake & Output
== END 2024-05-17 11:15 | disposition home or self-care (01) ==
LOC: ANHSURGERY 12:06 → ANHOB2 14:20
PROVIDERS: Plastic Surgery; PCP Family Medicine; Visit Provider Surgery
PROC: (CPT 19303; principal; 2024-05-16 07:30)
PROC: (CPT 19340; 2024-05-16 07:30)
DX: C50.411 Malignant neoplasm of upper-outer quadrant of right female breast (principal); C50.412 Malignant neoplasm of upper-outer quadrant of left female breast; L82.1 Other seborrheic keratosis; I10 Essential (primary) hypertension; E78.2 Mixed hyperlipidemia; G47.33 Obstructive sleep apnea (adult) (pediatric); R09.02 Hypoxemia; F33.0 Major depressive disorder, recurrent, mild; I67.2 Cerebral atherosclerosis; G89.29 Other chronic pain; M25.562 Pain in left knee; M17.0 Bilateral primary osteoarthritis of knee; E66.9 Obesity, unspecified; Z68.41 Body mass index [BMI] 40.0-44.9, adult; Z79.82 Long term (current) use of aspirin; Z98.890 Other specified postprocedural states; Z87.891 Personal history of nicotine dependence; Z86.79 Personal history of other diseases of the circulatory system; Z80.3 Family history of malignant neoplasm of breast; Z80.1 Family history of malignant neoplasm of trachea, bronchus and lung; Z82.49 Family history of ischemic heart disease and other diseases of the circulatory system
CPT/HCPCS: 19303; 38525; 19340; 15777 ×2; 38792; 88305; 88307; 88342; 88360; 99199; A9270; A9520; J0360; J0665; J0690; J1100; J1170; J1580; J2405; J2704; J3010; J7120; Q4116; Q9968

== ENCOUNTER 2024-09-25 09:00 | Outpatient (CLI) | payer MEDICARE, BC, SELFPAY ==
[2024-09-25 09:26] LABS: Basophils Absolute Auto 0.1 K/mm3 (0.0-0.1); Basophils Percent Auto 1.5 % (0.2-1.2); Eosinophils Absolute Auto 0.1 K/mm3 (0-0.3); Eosinophils Percent Auto 3.4 % (0-4.4); Hematocrit 36.5 % (37.0-47.0); Hemoglobin 12.5 g/dL (12.0-15.0); Immature Granulocyte Absolute 0.01 K/mm3 (0.00-0.031); Immature Granulocyte Percent A 0.2 % (0-0.5); Lymphocytes Percent Auto 29.3 % (18.3-44.2); Mean Corpuscular HGB Conc 34.2 g/dl (32-36); Mean Corpuscular Hemoglobin 33.5 pg (26-34); Mean Corpuscular Volume 97.9 fl (80-100); Mean Platelet Volume 12.9 fl (7.4-10.4); Monocytes Absolute Auto 0.3 K/mm3 (0.1-0.6); Monocytes Percent Auto 8.3 % (2.6-8.5); Neutrophils Absolute Auto 2.3 K/mm3 (1.3-6.7); Neutrophils Percent Auto 57.3 % (45.5-73.1); Platelet Count Result 130 k/mm3 (150-375); Red Blood Count 3.73 M/mm3 (4.2-5.4); White Blood Count 4.1 K/mm3 (4.5-10.0)
--- OUTSIDE RECORDS SUMMARY | 2024-09-25 09:34 | XMS_ITS | Clinical Summary ---
Author Organization [facility] Address [address] [place] [address] Phone Care Team Providers Care Cell Feed Department Supervisor Name Role Phone Unavailable Primary Care Provider Unavailabl e Social History Tobacco Use Types Packs/Day Years Used Date Smoking Tobacco: Never Assessed Comments Unknown Sex and Gender Information Value Date Recorded Sex Assigned at Not on file Legal Sex Female 3:[address] Gender Identity Not on file Sexual Orientation Not on file Plan of Treatment Health Maintenance Due Date Last Done Comments DEXA Bone Density 1955 Hepatitis C Virus (HCV) Screening 1955 TdaP Immunization 1955 Colonoscopy 1998 Colorectal Cancer Screening 1998 Cologuard 12/02/2003 Immunochemical Fecal Occult Blood 12/02/2003 Mammogram 12/02/2003 Pneumococcal Immunization (5 0+ years) (1 of 1 - PCV) 12/02/2003 Zoster Immunization (1 of 2) 12/02/2003 Influenza Immunization (#1) 2024 SARS-COV-2 Immunization ( - 2023-25 season) 2024 Respiratory Syncytial Virus (RSV) Immunization (Adult) (1 - 1-dose 75+ series) 2028 Hepatitis B Immunization Aged Out No longer eligible based on patient's age to complete this topic Meningococcal Immunization (ACWY) Aged Out No longer eligible based on patient's age to complete this topic Rotavirus Immunization Aged Out No lo nger eligible based on patient's age to complete this topic
--- OUTSIDE RECORDS SUMMARY | 2024-09-25 09:34 | XMS_ITS | Continuity of Care Document ---
Author Organization [facility] Address [address] [place] [phone] Phone Care Team Providers Care Probation Officer Name Role Phone [facility], . Unavailable Unav ailable Allergies, Adverse Reactions, [...] Provider Providers Copied on Encounter [facility], [address] [place] [address], [id number], [place] tel:[phone] [facility] No Information Apr- [facility] .. [address] [place] [address], [id number], [place]. tel:[phone] Referring Provider: Florencio Urena MD P, [address], [place], [place], [id number]. tel:[phone] [facility], [address] [place] [address], [id number], tel:[phone] [facility] No Information 1 [facility] .. [address] [place] [address], [id number], [place]. tel:[phone] Referring Provider: Florencio Urena MD P, [address], [place], [place], [id number]. tel:[phone] [facility], [address] [place] [address], [id number], tel:[phone] [facility] No Information 1 [facility] .. [address] [place] [address], [id number], [place]. tel:[phone] Family History Family Member Type Diagnosis Age At Onset No Information Payers Payer name Insurance type Covered green party ID Authoralma rosaa saritha(s) [place] [id number] [facility] [id number] Social History Type Description Quantity Date Captured Comments Alcohol Use Details Unknown Caffeine Use Details Unknown Tobacco Use Status No Information Smoking Status Heavy tobacco smoker Sex Female Vital Signs Date / Time: Height Weight BMI Pulse Rate Blood Pressure Temperature Respiratory Rate Body Surface Area Head Circumference BMI percentile Pulse Ox Inhaled Ox 8:21 AM 58 /min 98.10 F 18 /min 98 54 /min 168/82 mm[Hg] 16 /min 97 Chief Complaint And Reason For Visit No Information Plan Of Treatment Date Type Action Status No Information History Of Present Illness Encounter Date Complaint History Of Prese nt Illness No Information Instructions Date Instruction Additional Infor mation No Information Assessments Type Assessment Date No Information
--- OUTSIDE RECORDS SUMMARY | 2024-09-25 09:34 | XMS_ITS | Clinical Summary ---
Author [facility] Address [address] [place] [address] Care Team Providers Care Biomass Plant Technician Name Role Phone Guillermina Lopez MD Primary Care Provider [phone] Allergies Active Allergy Reactions Criticality Noted Date Comments Propoxyphene Hives High 02/23/2024 Tramadol Confusion Low 02/23/2024 Medications atorvastatin (LIPITOR) 40 mg tablet Take 1 Tablet by mouth daily. 12/21/2023 Active losartan (COZAAR) 50 mg tablet Take 1 Tablet by mouth daily. 01/11/2024 Active omeprazole (PriLOSEC) 40 mg Capsule, Delayed Release(E.C.) Take 1 Capsule by mouth 2 times daily. 12/21/2023 Active aspirin (ECOTRIN EC) 81 mg Tablet, Delayed Release (E.C.) Take 81 mg by mouth daily. Active anastrozole (Arimidex) 1 mg tablet Take 1 Tablet (1 mg) by mouth daily. 90 Tablet 3 06/02/2024 Active Active Problems No known active problems Encounters Date Type Department Care Team Description 09/20/2024 External Device Data [facility] ABSTRACTION Provider, Abstract 09/20/2024 External Device Data [facility] ABSTRACTION Provider, Abstract from Last 3 Months Family History Medical History Relation Name Comments Heart Disease Brother 1 blue No Known Problems Brother 2 sunny No Known Problems Brother 3 pauline No Known Problems Child 1 harlan Breast Cancer Child 2 diogo Colon Cancer Father Diabetes Father Prostate Cancer Father Breast Cancer Mother Heart Disease Mother No Known Problems Sister stephanie Relation Name Status Comments Brother 1 blue Brother 2 sunny Brother 3 pauline Child 1 harlan Alive Child 2 diogo Alive Father Mother Sister stephanie Alive Social History Tobacco Use Types Packs/Day Years Used Date Smoking Tobacco: Former Cigarettes 0.5 30.2 0 02/22/1994 - 04/30/2024 Tobacco Cessation:Counseling Given: Not Answered Alcohol Use Standard Drinks/Week Comments Not Currently 0 (1 standard drink = 0.6 oz pur e alcohol) Comments Unknown Sex and Gender Information Value Date Recorded Sex Assigned at Not on file Legal Sex Female 12:58 PM CDT Gender Identity Not on file Sexual Orientation Not on file Last Filed Vital Signs Vital Sign Reading Time Taken Comments Blood Pressure 132/62 06/02/2024 11:51 AM CDT Pulse 88 06/02/2024 11:51 AM CDT Temperature 36.4 ??C (97.5 ??F) 06/02/2024 11:51 AM C DT Respiratory Rate 16 06/02/2024 11:51 AM CDT Oxygen Saturation 96% 06/02/2024 11:51 AM CDT Inhaled Oxygen Concentration - - Weight 108.4 kg (239 lb) 06/02/2024 11:51 AM CDT Height 165.1 cm (5' 5 ) 02/23/2024 3:31 PM CDT Body Mass Index 39.77 02/23/2024 3:31 PM CDT Plan of Treatment Upcoming Encounters Date Type Department Care Team (Late st Contact Info) Description 10/05/2024 2:15 PM CREW BOSS Office Visit [facility] [address] [facility] [address] [place] [address] Guanaco Dubois MD [address] [place] [address] Health Maintenance Due Date Last Done Comments Pre-Diabetes and Diabetes Screening 1955 DTAP/TDAP/TD VACCINES (1 - Tdap) 1972 Traditional Medicare (ACO) Annual Wellness Visit 12/01 BREAST CANCER SCREENING 1993 COLORECTAL SCREENING 1998 Colorectal Cancer Screening 1998 FIT-DNA Q 3 years 1998 FIT/FOBT Q 1 year 1998 Flex Sig/CT Colonography Q 5 years 1998 PNEUMOCOCCAL VACCINE 65+ YEARS (1 of 1 - PCV) 12/02/19 04 ZOSTER VACCINE (1 of 2) 12/02/2003 OSTEOPOROSIS SCREENING 2018 INFLUENZA VACCINE (#1) 2024 RSV VACCINE (60+ or ) (1 - 1-dose 75+ series) 2028 Insurance MEDICARE PART A AND B [facility] Care Teams Biomass Plant Technician Relationship Specialty Start Date End Date Guillermina Lopez MD [address] [facility] [address] [place] [address] PCP - General Family Practice 02/18/24
--- OUTSIDE RECORDS SUMMARY | 2024-09-25 09:34 | XMS_ITS | Referral Summary ---
Author Organization [facility] Address [address] [facility] [place] [address] Care Team Providers Care Metal Fabricating Inspector Name Role Phone Unavailable Primary Care Provider Unavailabl e Source Comments [facility],non-owned Affiliates and Associated Physician Practices is amultiple site organization consisting of ambulatory clinics and hospital sitesin [place], [place], [place] and [place]. This disclosure is being madepursuant to the Care Everywhere program and may not contain all information available regarding this patient. Last updated 18.[facility] Social History Tobacco Use Types Packs/Day Years Used Date Smoking Tobacco: Never Assessed Sex and Gender Information Value Date Recorded Sex Assigned at Not on file Gender Identity Not on file Sexual Orientation Not on file Plan of Treatment Not on file Dina Herring Personal/Famil y Self 1955 [address] [place] [address] DINA HERRING Personal/Famil y [address] [place] [address] DINA HERRING Personal/Famil y [address] [place] [address] DINA [place]ERRING Personal/[place] [address] [place] [address] Dina Herring Personal/Famil y Self 1955 DINA HERRING Personal/Famil y [address] [place] [address]
--- OUTSIDE RECORDS SUMMARY | 2024-09-25 09:34 | XMS_ITS | Clinical Summary ---
Author Organization [facility] Address [address] [place] [place] [address] Care Team Providers Care Associate Media Planner Name Role Phone Unavailable Primary Care Provider Unavailabl e Source Comments [facility],non-owned Affiliates and Associated Physician Practices is amultiple site organization consisting of ambulatory clinics and hospital sitesin [place], [place], [place] and [place]. This disclosure is being madepursuant to the Care Everywhere program and may not contain all information available regarding this patient. Last updated 18.[facility] [employer] Social History Tobacco Use Types Packs/Day Years Used Date Smoking Tobacco: Never Assessed Sex and Gender Information Value Date Recorded Sex Assigned at Not on file Gender Identity Not on file Sexual Orientation Not on file Plan of Treatment Health Maintenance Due Date Last Done Comments BONE DENSITY TESTING 1955 COLOGUARD (AGES 45-75) - COL ON CA SCREENING 1953 COLON MONITORING 1953 COLONOSCOPY - COLON CA SCREENING 1953 CT COLONOGRAPHY - COLON CA SCREENING 1953 Colorectal Cancer Screening 1953 FIT - COLON CA SCREENING 1953 FLEX SIG - COLON CA SCREENING 1953 LIPID TESTING 1953 MAMMOGRAM 1953 MEDICARE AWV ? 12 MONTHS 1953 HEPATITIS C SCREENING 11/27/1971 DTAP/TDAP/TD VACCINES (1 - Tdap) 1972 PNEUMOCOCCAL VACCINE 50+ (1 of 1 - PCV) 12/02/2003 ZOSTER VACCINE (1 of 2) 12/02/2003 COVID-19 VACCINE ( - 2023-2 5 season) 2024 INFLUENZA VACCINE (#1) 2024 DEPRESSION SCREENING 08/30/2024 Respiratory Syncytial Virus (RSV) Vaccine Pt: or over 60 yrs (1 - 1-dose 75+ series) 2028 HEPATITIS B VACCINE Aged Out No longe r eligible based on patient's age to complete this topic HIB VACCINE Aged Out No longer eligi ble based on patient's age to complete this topic HPV VACCINE Aged Out No longer eligi ble based on patient's age to complete this topic MENINGOCOCCAL (Group B) VACCINE Aged Out No longer eligible based on patient's age to complete this topic MENINGOCOCCAL VACCINE Aged Out No harpal vishnu eligible based on patient's age to complete this topic Dina Herring Personal/Famil y Self 1955 [address] [facility] [address] DINA HERRING Personal/Famil y 1947 [facility] [place] [address] DINA HERRING Personal/Famil y 1947 [facility] [address] DINA HERRING Personal/Famil y 1947 [facility] [address] Dina Herring Personal/Famil y Self 1955 DINA HERRING Personal/Famil y 1947 [facility] [address]
--- OUTSIDE RECORDS SUMMARY | 2024-09-25 09:34 | XMS_ITS | Patient Health Summary ---
Author Organization [facility] Address [address] [place] [address] Care Team Providers Care Traffic Inspector Name Role Phone Unavailable Primary Care Provider Dylon e Note from [facility],non-owned Affiliates and Associated Physician Practices is amultiple site organization consisting of ambulatory clinics and hospital sitesin [place], [place], [place] and [place]. This disclosure is being madepursuant to the Care Everywhere program and may not contain all information available regarding this patient. Last updated 18.[facility] Social History Tobacco Use Types Packs/Day Years Used Date Smoking Tobacco: Never Assessed Sex and Gender Information Value Date Recorded Sex Assigned at Not on file Gender Identity Not on file Sexual Orientation Not on file Procedures * DERMATOPATHOLOGY(Performed 11/18/2021) Results * DERMATOPATHOLOGY (11/18/2021 12:00 AM CDT) Case Report Dermatopathology Report ? Case: [id number] ? Authorizing Provider: ??Yoel Coles, DO ?Collected: ? 11/18/2021 12:00 AM ? Ordering Location: ? [facility] DermPath Lab ?Received: ?11/20/2021 09:33 AM ? Pathologist: ? Stephanie Worley MD ? Specimen: ?Skin, right forearm ? 2 4:42 PM T DERMATOPATHOLOGY LABORATORY Final Diagnosis Specimen A. 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 Please Check Margins. 2 4:42 PM T DERMATOPATHOLOGY LABORATORY Gross Description Specimen A: Received is one formalin filled container labeled with the patient's name and designated right forearm. The specimen consists of a punch biopsy measuring [id number]. The specimen is inked and bisected.Jar 0. 4:42 PM T DERMATOPATHOLOGY LABORATORY Microscopic Description Specimen A. SKIN, right forearm: There are scattered dyskeratotic keratinocytes and vacuolar alteration along the basal cell layer. In addition, an underlying band-like infiltrate composed mostly of lymphocytes focally obscures the dermal-epidermal junction. Eosinophils are not seen. The epidermis is focally necrotic and covered with a scale-crust. There is fibrin at the base. Sections show abundant melanin within melanophages around the superficial vascular plexus. Periodic acid-Marcelo (PAS) stain fails to highlight fungal elements or significant basement membrane thickening in the available sections. Vasculitis is not seen. COMMENT: The histologic differential diagnosis includes lichen planus, which is somewhat favored, and a lichenoid hypersensitivity reaction, such as to contact or drug. 2 4:42 PM T DERMATOPATHOLOGY LABORATORY Disclaimer An external and internal positive and negative controls are appropriate for the histochemical, immunohistochemical and immunofluorescence stain(s) in this case (if any), except where stated explicitly. The performance characteristics of the stain(s) cited in this report were developed and its performance characteristic determined by the Dermatopathology Laboratory at [facility], directed by Dr. Yannick Sanders. These tests need not be, and therefore are not, approved by the [place] Food and Drug Administration. The tests are used for clinical purposes. Billing Codes Specimen Charges Stain Charges 58588 1 41085 1 2 4:42 PM CDT DERMATOPATHOLOGY LABORATORY Embedded Images 2 4:42 PM CDT DERMATOPATHOLOGY LABORATORY Pathology/Cytolog y TISSUE SPECIMEN FROM SKIN / Unknown 11/18/2021 11/20/2021 9:33 AM CDT Yoel Coles DO LAB - PATHOLOGY/CYTO LOGY ORDERABLES DERMATOPATHOLOGY LABORATORY [facility] - Department of Dermatology [address], [address] [phone]
--- OUTSIDE RECORDS SUMMARY | 2024-09-25 09:34 | XMS_ITS | Continuity of Care Document ---
Author Organization [facility] Address [address] [place] [address] [address] [place] [address] Phone Care Team Providers Care Can Solderer Name Role Phone Romel CHRISTINA MD, Florencio Unavailable Unavailable Procedures Procedure Date OPHTHALMIC BIOMETRY CATARACT SURG W/IOL, 1 STAGE OPHTHALMIC BIOMETRY CATARACT SURG W/IOL, 1 STAGE PHARMACY 2 EYES Advance Directives Directive Yes / No Effective Date File Name No Information Encounters Encounter Description Practice Location Reason(s) For Visit Diagnoses Date Provider Providers Copied on Encounter [facility], [address] [place] [address], [id number], tel:[phone] [address] [place] [address] No Information 1 Romel Matias. [address], [place], [place], [id number] , [place]. tel:[phone] Referring Provider: Florencio Sheth, [address], [place], [place], [id number]. tel:[phone] [facility], [address] [place] [address], [id number], tel:[phone] [address] [place] [address] No Information 1 Romel Matias. [address], [place], [place], [id number] , [place]. tel:[phone] Referring Provider: Florencio Sheth, [address], [place], [place], [id number]. tel:[phone] [facility], [address], [place], [place], [id number], [place] tel:[phone] OPH CONSULT REZA JENSEN No Information 1 Romel Matias. [address], [place], [place], [id number] , [place]. tel: [phone] Family History Family Member Type Diagnosis Age At Onset No Information Payers Payer name Insurance type Covered libertarian ID Authoriza tion(s) [place] MB [id number] [facility] [id number] Social History Type Description Quantity Date Captured [...]
--- OUTSIDE RECORDS SUMMARY | 2024-09-25 09:34 | XMS_ITS | Encounter Summary ---
Author Organization [facility] Address [address] [place] [address] Care Team Providers Care Thimble Press Operator Name Role Phone Unavailable Primary Care Provider Unavailabl e Encounter Details Date Type Department Care Team (Late st Contact Info) Description 11/20/2021 Lab Requisition [facility] [address] [place] [address] Yoel Coles, DO [address] [id number] Social History Tobacco Use Types Packs/Day Years Used Date Smoking Tobacco: Never Assessed Sex and Gender Information Value Date Recorded Sex Assigned at Not on file Gender Identity Not on file Sexual Orientation Not on file documented as of this encounter Plan of Treatment Not on file documented as of this encounter Procedures Procedure Name Priority Date/Time Associated Diagnosis Comments DERMATOPATHOLOGY Routine 11/18/2021 12:0 0 AM CDT documented in this encounter Results * DERMATOPATHOLOGY (11/18/2021 12:00 AM CDT) Case Report Dermatopathology Report ? Case: [id number] ? Authorizing Provider: ??Yoel Coles, DO ?Collected: ? 11/18/2021 12:00 AM ? Ordering Location: ? [facility] ?Received: ?11/20/2021 09:33 AM ? Pathologist: ? Stephanie Worley MD ? Specimen: ?Skin, right forearm ? 4:42 PM T DERMATOPATHOLOGY LABORATORY Final Diagnosis Specimen A. 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 Please Check Margins. 4:42 PM T DERMATOPATHOLOGY LABORATORY Gross Description Specimen A: Received is one formalin filled container labeled with the patient's name and designated right forearm. The specimen consists of a punch biopsy measuring [id number]. The specimen is inked and bisected.Jar 0. [...] to contact or drug. 2 4:42 PM CDT DERMATOPATHOLOGY LABORATORY Disclaimer An external and internal positive and negative controls are appropriate for the histochemical, immunohistochemical and immunofluorescence stain(s) in this case (if any), except where stated explicitly. The performance characteristics of the stain(s) cited in this report were developed and its performance characteristic determined by the Dermatopathology Laboratory at [facility], directed by Dr. Yannick Sanders. These tests need not be, and therefore are not, approved by the [place] Food and Drug Administration. The tests are used for clinical purposes. Billing Codes Specimen Charges Stain Charges 25660 1 07400 1 2 4:42 PM CDT DERMATOPATHOLOGY LABORATORY Embedded Images 2 4:42 PM CDT DERMATOPATHOLOGY LABORATORY Pathology/Cytolog y TISSUE SPECIMEN FROM SKIN / Unknown 11/18/2021 11/20/2021 9:33 AM CDT Yoel Coles DO LAB - PATHOLOGY/CYTO LOGY ORDERABLES DERMATOPATHOLOGY LABORATORY [facility] - Department of Dermatology [address], [address] [phone] documented in this encounter Visit Diagnoses Not on filedocumented in this encounter
[2024-09-25 12:48] LABS: Alanine Aminotransferase 12 U/L (6-35); Albumin Level 3.7 g/dL (3.5-5.1); Alkaline Phosphatase 117 U/L (38-126); Anion Gap 8 mmol/L (4-12); Aspartate Amino Transferase 18 U/L (14-36); Bilirubin,Total 1.1 mg/dL (0.2-1.3); Blood Urea Nitrogen 12 mg/dL (7-17); Calcium 8.9 mg/dL (8.4-10.2); Carbon Dioxide 28 mmol/L (22-30); Chloride 105 mmol/L (98-107); Cholesterol 112 mg/dL (0-200); Estimated Glomerular Filt Rate 54; Glucose 100 mg/dL (65-110); HDL Direct 37 mg/dL; Potassium 4.3 mmol/L (3.4-5.0); Sodium 141 mmol/L (137-145); Triglycerides 107 mg/dL (<150)
[2024-09-25 12:59] LABS: LDL Cholesterol Direct 50 mg/dL
[2024-09-27 03:44] LABS: CA 15-3 22 U/mL (<32)
== END 2024-09-25 09:01 | disposition home or self-care (01) ==
LOC: ANHLAB 09:05
PROVIDERS: Student in an Organized Health Care Education/Training Program; PCP Family Medicine; Visit Provider Internal Medicine Hematology & Oncology
DX: C50.911 Malignant neoplasm of unspecified site of right female breast (principal); I10 Essential (primary) hypertension; E78.5 Hyperlipidemia, unspecified
CPT/HCPCS: 36415; 80053; 80061; 85025; 86300

== ENCOUNTER 2025-01-27 10:54 | Outpatient (CLI) | payer MEDICARE, BC, SELFPAY ==
--- NOTE | ~2025-01-27 | DEXA_ITS ---
Bone Density Report Name: DINA HERRING Age: 69 Sex: Female Ethnicity: White Date of : 1955 Indication: postmenopausal; screening for osteoporosis; Referring Provider: CONY ENRIQUE Study: Bone densitometry was performed. Exam Date: January 27, 2025 Accession number: [id number] Bone Density: Region BMD T-score Z-score Classification AP Spine(L1-L4) 0.724 -2.9 -0.8 Osteoporosis Femoral Neck (Left) 0.563 -2.6 -0.7 Osteoporosis Total Hip (Left) 0.759 -1.5 0.1 Osteopenia Femoral Neck (Right) 0.541 -2.8 -0.9 Osteoporosis Total Hip (Right) 0.797 -1.2 0.4 Osteopenia Total Hip Mean 0.778 -1.4 0.3 Osteopenia World Health Organization criteria for BMD impression classify patients as: Normal (T-score at or above -1.0), Osteopenia (T-score between -1.0 and -2.5), or Osteoporosis (T-score at or below -2.5). 10-year Fracture Risk: FRAX not reported because: Some T-score for Spine Total or Hip Total or Femoral Neck at or below -2.5 Clinical Information Provided by Patient: Smokes Has used the following medications: Vitamin D, Calcium Patient maximum height was 64 Menopause Age: 48 No regular weight bearing exercise Does not regularly consume dairy products Drinks caffeinated beverages Onset of menses at age 11 Number of children 2 Impression: The patient has osteoporosis, based on the Total Spine T-score. The patient has risk factors, including: smoking. Discussion: INCREASED RISK OF FRACTURE. BONE DENSITY IS UNDESIRABLY LOW AT ONE OR MORE SKELETAL SITES, CONSISTENT WITH POSTMENOPAUSAL OSTEOPOROSIS. This patient's lowest T-score meets the World Health Organization's (WHO) criteria for osteoporosis at one or more sites (T-score -2.5 or below). In untreated patients, the risk of osteoporotic fracture increases approximately two-fold for each 1.0 SD decrease in T-score. Low bone density is not the only risk factor for fracture; also consider factors such as patient's age, frailty or poor health, risk of falling, risk of injury, previous osteoporotic fracture, family history of osteoporosis, cigarette smoking, low body weight, etc. Not everyone with low bone mineral density has osteoporosis; osteomalacia and other metabolic bone disorders should also be considered. Patients who have osteoporosis should be evaluated for specific diseases and conditions (secondary causes) that may cause or contribute to bone loss. The [place] Association of Clinical Endocrinologists (AACE) and National Osteoporosis Foundation (NOF) recommend pharmacologic intervention for all postmenopausal women whose T-score is in this range. The patient should follow a healthful lifestyle (good nutrition with adequate calcium and vitamin D, and appropriate weight-bearing exercise). Follow-Up: Consider a repeat BMD and Vertebral Fracture Assessment (VFA) exam in 2 years or sooner if medically necessary, to reassess this patient's status. Reported by: FREDERICK on 01/27/2025 11:27:00 AM. Reviewed, dictated and finalized at location A.
--- OUTSIDE RECORDS SUMMARY | 2025-01-27 10:57 | XMS_ITS | Encounter Summary ---
Author Organization [facility] Address [address] [place] [address] Care Team Providers Care Assistant Paralegal Name Role Phone Unavailable Primary Care Provider Unavailabl e Encounter Details Date Type Department Care Team (Late st Contact Info) Description 11/20/2021 Lab Requisition [facility] DermPath Lab [address] [place] [address] Yoel Coles DO [address] [phone] Social History Tobacco Use Types Packs/Day Years Used Date Smoking Tobacco: Never Assessed Comments Unknown Sex and Gender Information Value Date Recorded Sex Assigned at Not on file Legal Sex Female 9:14 AM CDT Gender Identity Not on file Sexual Orientation Not on file documented as of this encounter Plan of Treatment Not on file documented as of this encounter Procedures Procedure Name Priority Date/Time Associated Diagnosis Comments DERMATOPATHOLOGY Routine 11/18/2021 12:0 0 AM CDT documented in this encounter Results * DERMATOPATHOLOGY (11/18/2021 12:00 AM CDT) Case Report Dermatopathology Report Case: [id number] Authorizing Provider: Yoel Coles DO Collected: 11/18/2021 12:00 AM Ordering Location: [facility] DermPath Lab Received: 11/20/2021 09:33 AM Pathologist: Stephanie Worley MD Specimen: Skin, right forearm 4:42 PM CDT DERMATOPATHOLOGY LABORATORY Final Diagnosis Specimen A. 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 Vasculitis. Please Check Margins. 2 4:42 PM CDT DERMATOPATHOLOGY LABORATORY Gross Description Specimen A: Received is one formalin filled container labeled with the patient's name and designated right forearm. The specimen consists of a punch biopsy measuring [id number]. The specimen is inked and bisected.Jar 0. 4:42 PM CDT DERMATOPATHOLOGY LABORATORY Microscopic Description Specimen A. SKIN, [...] characteristic determined by the Dermatopathology Laboratory at [facility], directed by Dr. Yannick Sanders. These tests need not be, and therefore are not, approved by the [place] Food and Drug Administration. The tests are used for clinical purposes. Billing Codes Specimen Charges Stain Charges 12870 1 95341 1 2 4:42 PM CDT DERMATOPATHOLOGY LABORATORY Embedded Images 2 4:42 PM CDT DERMATOPATHOLOGY LABORATORY Pathology/Cytolog y TISSUE SPECIMEN FROM SKIN / Unknown 11/18/2021 11/20/2021 9:33 AM CDT us Yoel Coles DO LAB - PATHOLOGY/CYTOLOGY ORDER CATRACHITA Final Result DERMATOPATHOLOGY LABORATORY [facility] - Department of Dermatology [facility] [address] [place] [address], [address] Floor [address] [phone] documented in this encounter Visit Diagnoses Not on filedocumented in this encounter
--- OUTSIDE RECORDS SUMMARY | 2025-01-27 10:57 | XMS_ITS | Clinical Summary ---
Author Organization [facility] Address [address] [place] [address] Care Team Providers Care Freight Engineer Name Role Phone Unavailable Primary Care Provider Unavailabl e Source Comments [facility],non-owned Affiliates and Associated Physician Practices is amultiple site organization consisting of ambulatory clinics and hospital sitesin [place], [place], [place] and [place]. This disclosure is being madepursuant to the Care Everywhere program and may not contain all information available regarding this patient. Last updated 18.[facility] Social History Tobacco Use Types Packs/Day Years [...] LIPID TESTING 1955 MAMMOGRAM 1955 MEDICARE AWV 12 MONTHS 1955 HEPATITIS C SCREENING 11/27/1971 DTAP/TDAP/TD VACCINES (1 - Tdap) 1972 PNEUMOCOCCAL VACCINE 50+ (1 of 1 - PCV) 12/02/2003 ZOSTER VACCINE (1 of 2) 12/02/2003 COVID-19 VACCINE (1 - 2023-2 5 season) 2024 DEPRESSION SCREENING 08/30/2024 INFLUENZA VACCINE (Season Ended) 2025 Respiratory Syncytial Virus (RSV) Vaccine Pt: or [...] to complete this topic MENINGOCOCCAL (Group B) VACC INE SHARED DECISION-MAKING Aged Out No longer eligibl e based on patient's age to complete this topic MENINGOCOCCAL GROUPS A/C/Y/W VACCINE Aged Out No longer eligible b ased on patient's age to complete this topic Insurance MEDICARE MEDICARE SELF PAY NO INSURANCE Member Subscriber Plan / Payer (Ef fective for All Dates) Name:Dina Negrete Member ID:Not on file Relation to Subscriber:Not on file Name:DINA NEGRETE Nabila Subscriber ID:Not on file (Home) Address: [address] [place] [address] Payer ID:Not on file Group ID:Not on file Type:Self Pay [facility] * Guarantor: DINA NEGRETE Account Type Relation to Patient Date of Phone Billing Address Personal/Family [address] [place] [address] MEDICARE ANTHEM * Guarantor: DINA NEGRETE Account Type Relation to Patient Date of Phone Billing Address Personal/Family [address] [place] [address] [facility] * Guarantor: DINA NEGRETE Relation to Patient Date of Phone Billing Address Personal/Family [address] [place] [address] MEDICARE [facility] * Guarantor: DINA NEGRETE Account Type Relation to Patient Date of Phone Billing Address Personal/Family [address] [place] [address]
--- OUTSIDE RECORDS SUMMARY | 2025-01-27 10:57 | XMS_ITS | Clinical Summary ---
Author Organization [facility] Address [address] [place] [address] Phone Care Team Providers Care Packing Room Worker Name Role Phone Unavailable Primary Care Provider Unavailabl e Social History Tobacco Use Types Packs/Day Years Used Date Smoking Tobacco: Never Assessed Comments Unknown Sex and Gender Information Value Date Recorded Sex Assigned at Not on file Legal Sex Female 3:57 AM CONCRETE PLANT LABORER Gender Identity Not on file Sexual Orientation [...]
--- OUTSIDE RECORDS SUMMARY | 2025-01-27 10:57 | XMS_ITS | Continuity of Care Document ---
Author Organization [facility] Address [address] [place] [address] [address] [place] [address] Phone Care Team Providers Care Precinct Commanding Officer Name Role Phone Romel CHRISTINA MD, Florencio Unavailable Unavailable Procedures Procedure Date OPHTHALMIC BIOMETRY CATARACT SURG W/IOL, 1 STAGE OPHTHALMIC BIOMETRY CATARACT SURG W/IOL, 1 STAGE PHARMACY 2 EYES Advance Directives Directive Yes / No Effective Date File Name No Information Encounters Encounter Description Practice Location Reason(s) For Visit Diagnoses Date Provider Providers Copied on Encounter [facility], [address] [place] [address], [id number], tel:[phone] [address] [place] [address] No Information 1 Romel Matias. [address], [place], [place], [id number] , [place]. tel: [phone] Referring Provider: Florencio Sheth, [address], [place], [address] . tel:[phone] Op[facility], [address] [place] [address], [id number], tel:[phone] [address] [place] [address] No Information 1 Romel Matias. [address], [place], [place], [id number] , [place]. tel:[phone] Referring Provider: Florencio Sheth, [address], [place], [address] . tel:[phone] [facility], [address], [place], [place], [id number], tel:[phone] OPH CONSULT REZA JENSEN No Information Apr- 1 Romel Matias. [address], [place], [place], [id number] , [place]. tel: [phone] Family History Family Member Type Diagnosis Age At Onset No Information Payers Payer name Insurance type Covered alliance party ID Authoriza tion(s) [place] [id number] [id number] Social History Type Description Quantity Date Captured [...]
--- OUTSIDE RECORDS SUMMARY | 2025-01-27 10:57 | XMS_ITS | Clinical Summary ---
Author Organization [facility] Address [address] [place] [address] Care Team Providers Care Radio Performer Name Role Phone Demond Ruth MD Primary Care Provider [phone] Allergies Active Allergy Reactions Criticality Noted Date [...] Encounters Date Type Department Care Team Description 01/18/2025 External Device Data STL ABSTRACTION Provider, Abstract 01/17/2025 External Device Data STL ABSTRACTION Provider, Abstract 01/16/2025 External Device Data STL ABSTRACTION Provider, Abstract 11/15/2024 External Device Data STL ABSTRACTION Provider, Abstract 11/04/2024 External Device Data STL ABSTRACTION Provider, Abstract 11/03/2024 External Device Data STL ABSTRACTION Provider, Abstract 11/01/2024 External Device Data STL ABSTRACTION Provider, Abstract [...] Sign Reading Time Taken Comments Blood Pressure 137/79 10/05/2024 2:14 PM HANDBAG FRAMES INSPECTOR Pulse 80 10/05/2024 2:12 PM HANDBAG FRAMES INSPECTOR Temperature 35.9 C (96.6 F) 10/05/2024 2:12 PM HANDBAG FRAMES INSPECTOR Respiratory Rate 15 10/05/2024 2:12 PM HANDBAG FRAMES INSPECTOR Oxygen Saturation 97% 10/05/2024 2:12 PM HANDBAG FRAMES INSPECTOR Inhaled Oxygen Concentration - - Weight 106.2 kg (234 lb 3.2 oz) 10/05/2024 2:12 PM HANDBAG FRAMES INSPECTOR Height 165.1 cm (5' 5) 02/23/2024 3:31 PM CDT Body Mass Index 38.97 02/23/2024 3:31 PM CDT Plan of Treatment Upcoming Encounters Date Type Department Care Team (Late st Contact Info) Description 02/14/2025 2:00 PM CDT Office Visit [facility] Oncology and Hematology - [place] [address] [facility] [address] [place] [address] Guanaco uDbois MD [address] [place] [address] Health Maintenance Due Date Last Done Comments DTAP/TDAP/TD VACCINES (1 - Tdap) 1972 COLORECTAL SCREENING 1998 Colorectal Cancer Screening 1998 FIT-DNA Q 3 years 1998 FIT/FOBT Q 1 year 1998 Flex Sig/CT Colonography Q 5 years 1998 PNEUMOCOCCAL VACCINE 50+ YEA RS (1 of 1 - PCV) 12/02/2003 ZOSTER VACCINE (1 of 2) 12/02/2003 OSTEOPOROSIS SCREENING 2018 INFLUENZA VACCINE (#1) 2024 COVID-19 Vaccine ( season) 2024, 11/20/2020 BREAST CANCER SCREENING 02/08/2025 02/09/2024 RSV VACCINE (60+ or ) (1 - 1-dose 75+ series) 2028 Insurance MEDICARE PART A AND B [facility] Care Teams Radio Performer Relationship Specialty Start Date End Date Demond Ruth MD [address] [place] [address] PCP - General Family Practice 10/05/24
--- OUTSIDE RECORDS SUMMARY | 2025-01-27 10:57 | XMS_ITS | Continuity of Care Document ---
Author Organization [facility] Address [address] [place] [address] Phone Care Team Providers Care Hazardous Waste Management Specialist Name Role Phone [facility] [place], . Unavailable Unav ailable Allergies, Adverse Reactions, [...] Provider Providers Copied on Encounter [facility], [address] [place] [address], [id number], [place] tel:[phone] [facility] No Information Apr- [facility] .. [address] [place] [address], [id number], [place]. tel:[phone] Referring Provider: Florencio Urena MD P, [address], [place], [address] . tel:[phone] [facility], [address] [place] [address], [id number], tel:[phone] [facility] [place] No Information Apr- 1 [facility] .. [address] [place] [address], [id number], [place]. tel:[phone] Referring Provider: Florencio Urena MD P, [address], [place], [address] . tel:[phone] [facility], [address] [place] [address], [id number], tel:[phone] [facility] [place] No Information Apr- 1 [facility] .. [address] [place] [address], [place], [place], [id number], . tel:[phone] Family History Family Member Type Diagnosis Age At Onset No Information Payers Payer name Insurance type Covered democrat ID Authorcristela melara(s) [place] [id number] [facility] [id number] Social History Type Description Quantity Date Captured [...]
== END 2025-01-27 10:55 | disposition home or self-care (01) ==
PROVIDERS: PCP Family Medicine; Visit Provider Internal Medicine Hematology & Oncology
DX: M85.89 Other specified disorders of bone density and structure, multiple sites (principal)
CPT/HCPCS: 77080

== ENCOUNTER 2025-02-01 00:15 | Day surgery (SDC) | payer MEDICARE, BC, SELFPAY ==
[2025-01-25 10:29] VITALS: BMI 40.3
--- OUTSIDE RECORDS SUMMARY | 2025-02-01 00:17 | XMS_ITS | Continuity of Care Document ---
Author Organization [facility] Address [id number] [place] [address] [address] [place] [address] Phone Care Team Providers Care Jet Man Name Role Phone Romel CHRISTINA MD, Florencio Unavailable Unavailable Procedures Procedure Date OPHTHALMIC BIOMETRY CATARACT SURG W/IOL, 1 STAGE OPHTHALMIC BIOMETRY CATARACT SURG W/IOL, 1 STAGE PHARMACY 2 EYES Advance Directives Directive Yes / No Effective Date File Name No Information Encounters Encounter Description Practice Location Reason(s) For Visit Diagnoses Date Provider Providers Copied on Encounter Ophthal[facility], [address] [place] [address], [id number], tel:[phone] [address] [place] [address] No Information 1 Romel Matias. [address], [place], [place], [id number] , [place]. tel: [phone] Referring Provider: Florencio Sheth, [address], [place], [address] . tel:[phone] Op[facility], [address] [place] [address], [id number], tel:[phone] [address] [place] [address] No Information 1 Romel Matias. [address], [place], [place], [id number] , [place]. tel:[phone] Referring Provider: Florencio Sheth, [address], [place], [address] . tel:[phone] [facility], [address], [place], [place], [id number], tel:[phone] OPH CONSULT REZA JENSEN No Information Apr- 1 Romel Matias. [address], [place], [place], [id number] , [place]. tel: [phone] Family History Family Member Type Diagnosis Age At Onset No Information Payers Payer name Insurance type Covered alliance party ID Authoriza tion(s) [place] [id number] [id number] Social History Type Description Quantity Date Captured [...]
--- OUTSIDE RECORDS SUMMARY | 2025-02-01 00:17 | XMS_ITS | Clinical Summary ---
Author Organization [facility] Address [address] [place] [address] Phone Care Team Providers Care Staff Engineer Name Role Phone Unavailable Primary Care Provider Unavailabl e Social History Tobacco Use Types Packs/Day Years Used Date Smoking Tobacco: Never Assessed Comments Unknown Sex and Gender Information Value Date Recorded Sex Assigned at Not on file Legal Sex Female 3:57 AM PRINT MANAGER Gender Identity Not on file Sexual Orientation [...]
--- OUTSIDE RECORDS SUMMARY | 2025-02-01 00:17 | XMS_ITS | Clinical Summary ---
Author Organization [facility] Address [address] [place] [place] [address] Care Team Providers Care Md Senior Research Scientist Name Role Phone Unavailable Primary Care Provider Unavailabl e Source Comments [facility],non-owned Affiliates and Associated Physician Practices is amultiple site organization consisting of ambulatory clinics and hospital sitesin [place], [place], [place] and [place]. This disclosure is being madepursuant to the Care Everywhere program and may not contain all information available regarding this patient. Last updated 18.[facility] Social History Tobacco Use Types Packs/Day Years [...] Subscriber ID:Not on file (Home) Address: [address] [place] [address] Payer ID:Not on file Group ID:Not on file Type:Self Pay Address: [facility] * Guarantor: DINA NEGRETE Account Type Relation to Patient Date of Phone Billing Address Personal/Family [address] [place] [address] MEDICARE ANTHEM * Guarantor: DINA NEGRETE Account Type Relation to Patient Date of Phone Billing Address Personal/Family [address] [place] [address] [facility] * Guarantor: DINA NEGRETE Relation to Patient Date of Phone Billing Address Personal/Family [address] [place] [address] MEDICARE [facility] * Guarantor: DINA NEGRETE Account Type Relation to Patient Date of Phone Billing Address Personal/Family [address] [place] [address]
--- OUTSIDE RECORDS SUMMARY | 2025-02-01 00:17 | XMS_ITS | Clinical Summary ---
[facility] Address [address] [address] Care Team Providers Care Sprinkler Truck Driver Name Role Phone Demond Ruth MD Primary Care Provider [phone] Allergies Active Allergy Reactions Criticality Noted Date [...] Comments Blood Pressure 137/79 10/05/2024 2:14 PM CLASSIFICATION INSPECTOR Pulse 80 10/05/2024 2:12 PM CLASSIFICATION INSPECTOR Temperature 35.9 C (96.6 F) 10/05/2024 2:12 PM CLASSIFICATION INSPECTOR Respiratory Rate 15 10/05/2024 2:12 PM CLASSIFICATION INSPECTOR Oxygen Saturation 97% 10/05/2024 2:12 PM CLASSIFICATION INSPECTOR Inhaled Oxygen Concentration - - Weight 106.2 kg (234 lb 3.2 oz) 10/05/2024 2:12 PM CLASSIFICATION INSPECTOR Height 165.1 cm (5' 5) 02/23/2024 3:31 PM CDT Body Mass Index 38.97 02/23/2024 3:31 PM CDT Plan of Treatment Upcoming Encounters Date Type Department Care Team (Late st Contact Info) Description 02/14/2025 2:00 PM CDT Office Visit [facility] Oncology and Hematology - [place] [address] [facility] [address] [place] [address] Guanaco Dubois MD [address] [facility] [address] [place] [address] Health Maintenance Due Date Last [...] 2028 Insurance MEDICARE PART A AND B [facility] Care Teams Sprinkler Truck Driver Relationship Specialty Start Date End Date Demond Ruth MD [address] [place] [address] PCP - General Family Practice 10/05/24
--- OUTSIDE RECORDS SUMMARY | 2025-02-01 00:17 | XMS_ITS | Continuity of Care Document ---
Author Organization [facility] Address [address] [place] [address] Phone Care Team Providers Care Field Sales Consultant Name Role Phone [facility], . Unavailable Unav ailable Allergies, Adverse Reactions, [...] Provider Providers Copied on Encounter [facility], [address] [place] [address], [id number], [place] tel:[phone] [facility] No Information Apr- [facility] .. [address] [place] [address], [id number], [place]. tel:[phone] Referring Provider: Florencio Urena MD P, [address], [place], [address] . tel:[phone] [facility], [address] [place] [address], [id number], tel:[phone] [facility] [place] No Information Apr- 1 [facility] .. [address] [place] [address], [id number], [place]. tel:[phone] Referring Provider: Florencio Urena MD P, [address], [place], [address] . tel:[phone] [facility], [address] [place] [address], [id number], tel:[phone] [facility] [place] No Information Apr- 1 [facility] .. [address] [place] [address], [place], [place], [id number], . tel:[phone] Family History Family Member Type Diagnosis Age At Onset No Information Payers Payer name Insurance type Covered democrat ID Authorcristela melara(s) [place] [id number] [facility] [id number] Social History Type Description Quantity Date Captured [...]
--- OUTSIDE RECORDS SUMMARY | 2025-02-01 00:17 | XMS_ITS | Encounter Summary ---
Author Organization [facility] Address [address] [place] [address] Care Team Providers Care Accelerator Systems Director Name Role Phone Unavailable Primary Care Provider Unavailabl e Encounter Details Date Type Department Care Team (Late st Contact Info) Description 11/20/2021 Lab Requisition [facility] [address] [place] [address] Yoel Coles DO [address] [id number] Social History Tobacco Use Types Packs/Day Years [...] AM CDT) Case Report Dermatopathology Report Case: [id number] Authorizing Provider: Yoel Coles DO Collected: 11/18/2021 12:00 AM Ordering Location: [facility] Received: 11/20/2021 09:33 AM Pathologist: [...] specimen consists of a punch biopsy measuring [id number]. The specimen is inked and bisected.Jar 0. [...] characteristic determined by the Dermatopathology Laboratory at [facility], directed by Dr. Yannick Sanders. These tests need not be, and therefore are not, approved by the [place] Food and Drug Administration. The tests are used for clinical purposes. Billing Codes Specimen Charges Stain Charges 91441 1 64154 1 2 4:42 PM CDT DERMATOPATHOLOGY LABORATORY Embedded Images 2 4:42 PM CDT DERMATOPATHOLOGY LABORATORY Pathology/Cytolog y TISSUE SPECIMEN FROM SKIN / Unknown 11/18/2021 11/20/2021 9:33 AM CDT us Yoel Coles DO LAB - PATHOLOGY/CYTOLOGY ORDER CATRACHITA Final Result DERMATOPATHOLOGY LABORATORY [facility] - Department of Dermatology [facility] Medicine [address] [place] [address], [address] [phone] documented in this encounter Visit Diagnoses Not on filedocumented in this encounter
[2025-02-01 09:09] VITALS: BP 105/102; PULSE 97; RESP 18; TEMP 36.1; O2SAT 100; BMI 39.7
[2025-02-01] MEDS: LACTATED RINGERS 1,000 ML 150 ML IV CONT (09:27)
--- NOTE | 2025-02-01 09:35 | P.PNAN_ITS ---
Anes - Initial Pre Proc Eval Procedure: Operation Date: 02/01/25 10:30 Proposed Procedures p Screening Colonoscopy - Constantine Martinez MD Date/Time: 02/01/25 09:35 Surgeon: Constantine Martinez MD Pre Op Diagnosis: Screening Patient Data Age: 69 Gender: F Height: 1.63 m Weight: 105 kg Last Vital Signs Temp 97 F L 02/01/25 09:09 Pulse 97 02/01/25 09:09 Resp 18 02/01/25 09:09 BP 105/102 H 02/01/25 09:09 Pulse Ox 100 02/01/25 09:09 O2 Del Method Room Air 02/01/25 09:09 Allergies Allergy/AdvReac Type Severity Reaction Status Date / Time tramadol Allergy Intermediate Hives Verified 02/01/25 09:08 propoxyphene Allergy Unknown Hives Verified 02/01/25 09:08 Home Medications ?Medication ?Instructions ?Recorded ?Confirmed ?Type aspirin 81 mg tablet,delayed 81 mg PO DAILY 04/27/24 02/01/25 History release (Adult Low Dose Aspirin) atorvastatin 40 mg tablet 40 mg PO HS 04/27/24 02/01/25 History anastrozole 1 mg tablet 1 mg PO DAILY 07/18/24 02/01/25 History omeprazole 40 mg capsule,delayed See Rx Instructions .Route 12/11/24 02/01/25 Rx release .COMPLEX #180 caps losartan 50 mg tablet See Rx Instructions .Route 01/01/25 02/01/25 Rx .COMPLEX #90 tabs Patient hx anesthesia problems: none Family hx anesthesia problems: none Results Review: All pre-operative results and documents have been reviewed as part of the pre- operative evaluation. [facility] Past Medical History Medical History Benign essential HTN Tobacco user Chronic pain of left knee Cerebral atherosclerosis Tobacco abuse Primary osteoarthritis of both knees Other chronic pain LENNIE (obstructive sleep apnea) Mixed hyperlipidemia MDD (major depressive disorder), recurrent episode, mild Hypoxemia Facial weakness S/P CVA (cerebrovascular accident) Essential (primary) hypertension CVA, old, cognitive deficits Surgical History Surgical History Hx of total knee arthroplasty Family History Family History Father Diabetes mellitus Family history of malignant neoplasm, Onset Age: 84 Mother Hypertension Patient's mother is in good health Family history of cardiovascular disease Family history of arthritis Family history of malignant neoplasm Heart disease Cerebrovascular accident Sibling Hypertension Patient's sister is , Onset Age: 43 Patient's brother is in good health Patient's brother is , Onset Age: 22 Family history of cardiovascular disease Grandparent Breast cancer Diabetes mellitus Hypertension Heart disease Throat cancer Social History Social History Social History: Smoking packs per day: 2 Smoking cigarettes per day: 40.0 Years smoked: 25 Smoking pack-years: 50.00 Smoking status: Former smoker Tobacco type: cigarettes Second hand tobacco smoke exposure: No Smoking end date: 08/30/17 Alcohol intake: former Alcohol use details: Occasionally Substance use: never Substance use type: does not use Do You Feel Safe in your Home?: Yes Lack of Transportation: No Lack of Food: Never True Current Housing: I Have Housing Concerned About Future Housing: No Difficulty Paying Gas/Electric Bills: No Difficulty Paying for Meds: No Currently Unemployed: YES Education: High School Diploma/GED Difficulty w/ Childcare or Family Care: No Living arrangements: with family Occupation/Education: retired Gender identity (if verbalized by the patient): Female Sexual Orientation (if Verbalized by the Patient): Straight or Heterosexual Spiritual care concerns: No Anes - Eval Final PreProcedure Day of Procedure 02/01/25 09:35 Patient weight: morbidly obese Lungs: normal air movement Airway: Mallampati scale class II and special considerations (Upper and lower dentures. ) Neurological: alert and oriented Last oral intake: >/= 8 hours ASA classification: III Emergent: no Anesthetic plan: proceed Anesthesia type and monitoring: general GIVS and standard monitoring Results Review: All pre-operative results and documents have been reviewed as part of the pre- operative evaluation. HTN, hyperlipidemia, breast ca by hx, LENNIE but no CPAP, hx of CVA w no residual. Informed Consent: The patient's anesthetic plan and its attendant risks and benefits were d iscussed with the patient/family/POA. Questions were solicited and answers provided to the satisfaction of the patient/family/POA.
--- NOTE | 2025-02-01 10:05 | PM.IMHP ---
H&P: HPI History of Present Illness Date/Time: 02/01/25 10:05 Chief Complaint: Family history of colon cancer Narrative: This patient has family history of colorectal cancer. her father had colon cancer at age 80. Her last colonoscopy was 10 years ago. Review of Systems Review of Systems: All systems reviewed & are unremarkable except as noted in HPI and below PMFSH Past Medical History Medical History Benign essential HTN Tobacco user Chronic pain of left knee Cerebral atherosclerosis Tobacco abuse Primary osteoarthritis of both knees Other chronic pain LENNIE (obstructive sleep apnea) Mixed hyperlipidemia MDD (major depressive disorder), recurrent episode, mild Hypoxemia Facial weakness S/P CVA (cerebrovascular accident) Essential (primary) hypertension CVA, old, cognitive deficits Surgical History Surgical History Hx of total knee arthroplasty Family History Family History Father Diabetes mellitus Family history of malignant neoplasm, Onset Age: 84 Mother Hypertension Patient's mother is in good health Family history of cardiovascular disease Family history of arthritis Family history of malignant neoplasm Heart disease Cerebrovascular accident Sibling Hypertension Patient's sister is , Onset Age: 43 Patient's brother is in good health Patient's brother is , Onset Age: 22 Family history of cardiovascular disease Grandparent Breast cancer Diabetes mellitus Hypertension Heart disease Throat cancer Social History Social History Social History: Smoking packs per day: 2 Smoking cigarettes per day: 40.0 Years smoked: 25 Smoking pack-years: 50.00 Smoking status: Former smoker Tobacco type: cigarettes Second hand tobacco smoke exposure: No Smoking end date: 08/30/17 Alcohol intake: former Alcohol use details: Occasionally Substance use: never Substance use type: does not use Do You Feel Safe in your Home?: Yes Lack of Transportation: No Lack of Food: Never True Current Housing: I Have Housing Concerned About Future Housing: No Difficulty Paying Gas/Electric Bills: No Difficulty Paying for Meds: No Currently Unemployed: YES Education: High School Diploma/GED Difficulty w/ Childcare or Family Care: No Living arrangements: with family Occupation/Education: retired Gender identity (if verbalized by the patient): Female Sexual Orientation (if Verbalized by the Patient): Straight or Heterosexual Spiritual care concerns: No Meds Home Medications and Allergies Home Medications ?Medication ?Instructions ?Recorded ?Confirmed ?Type aspirin 81 mg tablet,delayed 81 mg PO DAILY 04/27/24 02/01/25 History release (Adult Low Dose Aspirin) atorvastatin 40 mg tablet 40 mg PO HS 04/27/24 02/01/25 History anastrozole 1 mg tablet 1 mg PO DAILY 07/18/24 02/01/25 History omeprazole 40 mg capsule,delayed See Rx Instructions .Route 12/11/24 02/01/25 Rx release .COMPLEX #180 caps losartan 50 mg tablet See Rx Instructions .Route 01/01/25 02/01/25 Rx .COMPLEX #90 tabs Allergies Allergy/AdvReac Type Severity Reaction Status Date / Time tramadol Allergy Intermediate Hives Verified 02/01/25 09:08 propoxyphene Allergy Unknown Hives Verified 02/01/25 09:08 Vital Signs Vital Signs - 24 hr 02/01/25 09:09 Temperature 97 F L Pulse Rate 97 Respiratory Rate 18 Blood Pressure 105/102 H Pulse Oximetry 100 Oxygen Delivery Room Air Exam Const: General: cooperative and healthy appearing Resp: Effort & Inspection: normal respiratory effort and able to speak in complete sentences Auscultation: clear to auscultation bilaterally Cardio: Rate: regular rate Rhythm: regular rhythm GI: Inspection: normal to inspection GI Palp: No No hepatosplenomegaly present Auscultation: normal bowel sounds Rectal Exam: deferred Skin: General skin exam: normal color Psych: Appearance: grossly normal Mental Status: mental status grossly normal Assessment and Plan Assessment and plan (1) Family history of colon cancer in father: Code(s): Z80.0 - Family history of malignant neoplasm of digestive organs Status: Acute Assessment and Plan: The patient is deemed a good candidate for the procedure. Consent signed. Will proceed.
--- NOTE | 2025-02-01 10:27 | S_PTH ---
PATIENT: Claudio Negrete LOC: KRIS Pepe#:[id number] AGE/SX: 69/F ROOM: RE02/01/[address]: Constantine Martinez MD : 1955 BED: DIS: 02/01/2025 SPEC #: [id number] RECD: 02/01/25 11:28 STATUS: KARMA REQ #: [id number] KOBE: 02/01/25 10:[address]: Constantine Martinez DEPT: [facility] Surgical RECD BY: Darya Romero ENTERED: 02/01/25 11:29 SP TYPE: Surgical OTHR DR: Demond Ruth MD Tissues: A - Colon Polypectomy B - Colon Polypectomy C - Colon Polypectomy Procedures: Hematoxylin and Eosin Stain Gross and Microscopic Level 4
[2025-02-01 10:28] VITALS: BP 148/78; PULSE 84; RESP 18; O2SAT 98
[2025-02-01 10:38] VITALS: BP 143/76; PULSE 65; RESP 18; O2SAT 97
[2025-02-01 10:48] VITALS: BP 148/82; PULSE 64; RESP 18; O2SAT 97
== END 2025-02-01 11:02 | disposition home or self-care (01) ==
PROVIDERS: PCP Family Medicine; Referring Provider Physician Assistant; Visit Provider Internal Medicine Gastroenterology
PROC: 0DJD8ZZ Inspection of Lower Intestinal Tract, Via Natural or Artificial Opening Endoscopic (ICD-10-PCS; CPT 45378; principal; 2025-02-01 10:30)
DX: Z12.11 Encounter for screening for malignant neoplasm of colon (principal); D12.3 Benign neoplasm of transverse colon; D12.2 Benign neoplasm of ascending colon; D12.5 Benign neoplasm of sigmoid colon; K57.30 Diverticulosis of large intestine without perforation or abscess without bleeding; I10 Essential (primary) hypertension; G89.29 Other chronic pain; M25.562 Pain in left knee; M17.0 Bilateral primary osteoarthritis of knee; G47.33 Obstructive sleep apnea (adult) (pediatric); E78.2 Mixed hyperlipidemia; F32.9 Major depressive disorder, single episode, unspecified; R09.02 Hypoxemia; Z79.82 Long term (current) use of aspirin; Z98.890 Other specified postprocedural states; Z87.891 Personal history of nicotine dependence; Z85.3 Personal history of malignant neoplasm of breast; Z86.79 Personal history of other diseases of the circulatory system; Z80.3 Family history of malignant neoplasm of breast; Z80.0 Family history of malignant neoplasm of digestive organs; Z80.1 Family history of malignant neoplasm of trachea, bronchus and lung; Z82.49 Family history of ischemic heart disease and other diseases of the circulatory system
CPT/HCPCS: 45385; 88305; J2704; J7120

== ENCOUNTER 2025-03-07 11:13 | Outpatient (CLI) | payer MEDICARE, BC, SELFPAY ==
--- OUTSIDE RECORDS SUMMARY | 2025-03-07 11:17 | XMS_ITS | Encounter Summary ---
Author Organization [facility] Address [address] [place] [address] Care Team Providers Care Public Employment Mediator Name Role Phone Unavailable Primary Care Provider Unavailabl e Encounter Details Date Type Department Care Team (Late st Contact Info) Description 11/20/2021 Lab Requisition [facility] [address] [facility] [place] [address] Yoel Coles DO [address] [id number] Social History Tobacco Use Types Packs/Day Years [...] AM CDT) Case Report Dermatopathology Report Case: [id number] Authorizing Provider: Yoel Coles DO Collected: 11/18/2021 12:00 AM Ordering Location: [facility] Received: 11/20/2021 09:33 AM Pathologist: [...] specimen consists of a punch biopsy measuring [id number]. The specimen is inked and bisected.Jar 0. [...] characteristic determined by the Dermatopathology Laboratory at [facility], directed by Dr. Yannick Sanders. These tests need not be, and therefore are not, approved by the [place] Food and Drug Administration. The tests are used for clinical purposes. Billing Codes Specimen Charges Stain Charges 83858 1 86230 1 2 4:42 PM CDT DERMATOPATHOLOGY LABORATORY Embedded Images 2 4:42 PM CDT DERMATOPATHOLOGY LABORATORY Pathology/Cytolog y TISSUE SPECIMEN FROM SKIN / Unknown 11/18/2021 11/20/2021 9:33 AM CDT us Yoel Coles DO LAB - PATHOLOGY/CYTOLOGY ORDER CATRACHITA Final Result DERMATOPATHOLOGY LABORATORY [facility] - Department of Dermatology [facility] Medicine [address] [place] [address], [address] Floor [address] [phone] documented in this encounter Visit Diagnoses Not on filedocumented in this encounter
--- OUTSIDE RECORDS SUMMARY | 2025-03-07 11:17 | XMS_ITS | Clinical Summary ---
Author Organization [facility] [employer] Address [address] [place] [address] Care Team Providers Care Recoating Machine Operator Name Role Phone Unavailable Primary Care Provider Unavailabl e Source Comments [facility],non-owned Affiliates and Associated Physician Practices is amultiple site organization consisting of ambulatory clinics and hospital sitesin [place], [place], [place] and [place]. This disclosure is being madepursuant to the Care Everywhere program and may not contain all information available regarding this patient. Last updated 18.[facility] [employer] Social History Tobacco Use Types Packs/Day Years [...] season) 2024 DEPRESSION SCREENING 08/30/2024 INFLUENZA VACCINE (#1) 2025 Respiratory Syncytial Virus (RSV) Vaccine Pt: [...] to complete this topic Insurance MEDICARE MEDICARE [facility] SELF PAY NO INSURANCE Member Subscriber Plan / Payer (Ef fective for All Dates) Name:Dina Negrete Member ID:Not on file Relation to Subscriber:Not on file Name:DINA NEGRETE Subscriber ID:Not on file (Home) Address: [address] [place] [address] Payer ID:Not on file Group ID:Not on file Type:Self Pay [facility] * Guarantor: DINA NEGRETE Account Type Relation to Patient Date of Phone Billing Address Personal/Family [address] [place] [address] MEDICARE ANTHEM * Guarantor: DINA NEGRETE Account Type Relation to Patient Date of Phone Billing Address Personal/Family [address] [place] [address] MEDICARE ON LICENSE OF [facility] * Guarantor: DINA NEGRETE Account Type Relation to Patient Date of Phone Billing Address Personal/Family [address] [place] [address] MEDICARE ANTHEM * Guarantor: DINA NEGRETE Account Type Relation to Patient Date of Phone Billing Address Personal/Family [address] [place] [address]
--- OUTSIDE RECORDS SUMMARY | 2025-03-07 11:17 | XMS_ITS | Clinical Summary ---
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
--- OUTSIDE RECORDS SUMMARY | 2025-03-07 11:17 | XMS_ITS | Continuity of Care Document ---
Author Organization [facility] Address [address] [place] [address] [address] [place] [address] Phone Care Team Providers Care Digital Assistant Name Role Phone Romel CHRISTINA MD, Florencio Unavailable Unavailable Procedures Procedure Date OPHTHALMIC BIOMETRY CATARACT SURG W/IOL, 1 STAGE OPHTHALMIC BIOMETRY CATARACT SURG W/IOL, 1 STAGE PHARMACY 2 EYES Advance Directives Directive Yes / No Effective Date File Name No Information Encounters Encounter Description Practice Location Reason(s) For Visit Diagnoses Date Provider Providers Copied on Encounter Ophthalmology [facility], [address] [place] [address], [id number], tel:[phone] [address] [place] [address] No Information 1 Romel Matias. [address], [place], [place], [id number] , [place]. tel: [phone] Referring Provider: Florencio Sheth, [address], [place], [address] . tel:[phone] Ophthalmology [facility], [address] [place] [address], [id number], tel:[phone] [address] [place] [address] No Information 1 Romel Matias. [address], [place], [place], [id number] , [place]. [phone] Referring Provider: Florencio Sheth, [address], [place], [address] . tel:[phone] [facility], [address], [place], [place], [id number], [place] tel:[phone] [phone] CONSULT REZA JENSEN No Information 1 Romel Matias. [address], [place], [place], [id number] , [place]. tel: [phone] Family History Family Member Type Diagnosis Age At Onset No Information Payers Payer name Insurance type Covered alliance party ID Authoriza tion(s) [place] [id number] [facility] [id number] Social History Type Description Quantity Date Captured [...]
--- OUTSIDE RECORDS SUMMARY | 2025-03-07 11:17 | XMS_ITS | Continuity of Care Document ---
Author Organization [facility] Address [address] [place] [address] Phone Care Team Providers Care Major Appliance Assembly Supervisor Name Role Phone [facility], . Unavailable Unav ailable Allergies, Adverse Reactions, [...] Provider Providers Copied on Encounter [facility], [address] [place] [address], [id number], [place] tel:[phone] [facility] No Information Apr- [facility] .. [address] [place] [address], [id number], [place]. tel:[phone] Referring Provider: Florencio Urena MD P, [address], [place], [address] . tel:[phone] [facility], [address] [place] [address], [id number], tel:[phone] [facility] [place] No Information Apr- 1 [facility] .. [address] [place] [address], [id number], [place]. tel:[phone] Referring Provider: Florencio Urena MD P, [address], [place], [address] . tel:[phone] [facility], [address] [place] [address], [id number], tel:[phone] [facility] [place] No Information Apr- 1 [facility] .. [address] [place] [address], [place], [place], [id number], . tel:[phone] Family History Family Member Type Diagnosis Age At Onset No Information Payers Payer name Insurance type Covered republican ID Authorcristela melara(s) [place] MB [id number] [facility] [id number] Social History Type Description Quantity Date Captured [...]
--- OUTSIDE RECORDS SUMMARY | 2025-03-07 11:17 | XMS_ITS | Clinical Summary ---
Author Organization [facility] Panchomaricel yoon Germán Address [address] [address] Care Team Providers Care Contact Lens Inspector Name Role Phone Demond Ruth MD Primary Care Provider [phone] Allergies Active Allergy Reactions Criticality Noted Date [...] Encounters Date Type Department Care Team Description 02/13/2025 External Device Data STL ABSTRACTION Provider, Abstract 02/01/[address] [facility] Oncology and Hematology - [place] [address] [place] [address] Guanaco Dubois MD 01/18/2025 External Device Data STL ABSTRACTION Provider, Abstract 01/17/2025 External Device Data STL ABSTRACTION Provider, Abstract 01/16/2025 External Device Data STL ABSTRACTION Provider, Abstract from Last 3 Months Family History Medical History Relation Name Comments Heart Disease Brother 1 blue No Known Problems Brother 2 sunny No Known Problems Brother 3 pauilne No Known Problems Child 1 harlan Breast [...] Comments Blood Pressure 137/79 10/05/2024 2:14 PM SUPERVISOR ROLLER PRINTING Pulse 80 10/05/2024 2:12 PM SUPERVISOR ROLLER [employer]ING Temperature 35.9 C (96.6 F) 10/05/2024 2:12 PM SUPERVISOR ROLLER [employer]ING Respiratory Rate 15 10/05/2024 2:12 PM SUPERVISOR ROLLER [employer]INTING Oxygen Saturation 97% 10/05/2024 2:12 PM SUPERVISOR ROLLER PRINTING Inhaled Oxygen Concentration - - Weight 106.2 kg (234 lb 3.2 oz) 10/05/2024 2:12 PM SUPERVISOR ROLLER PRINTING Height 165.1 cm (5' 5) 02/23/2024 3:31 PM CDT Body Mass Index 38.97 02/23/2024 3:31 PM CDT Plan of Treatment Upcoming Encounters Date Type Department Care Team (Late st Contact Info) Description 03/14/2025 11:15 AM CDT Office Visit [facility] Oncology and Hematology - [place] [address] [facility] [address] [place] [address] Guanaco Dubois MD [address] [facility] [address] [place] [address] Health Maintenance Due Date Last Done Comments DTAP/TDAP/TD VACCINES (1 - Tdap) 1972 Traditional Medicare (ACO) A nnual Wellness Visit 1972 COLORECTAL SCREENING 1998 Colorectal Cancer Screening 1998 FIT-DNA Q 3 years 1998 FIT/FOBT Q 1 year 1998 Flex Sig/CT Colonography Q 5 years 1998 PNEUMOCOCCAL VACCINE 50+ YEA RS (1 of 1 - PCV) 12/02/2003 ZOSTER VACCINE (1 of 2) 12/02/2003 OSTEOPOROSIS SCREENING 2018 COVID-19 Vaccine ( - season) 2024, 11/20/2020 BREAST CANCER SCREENING 02/08/2025 02/09/2024 INFLUENZA VACCINE (#1) 2025 RSV VACCINE (60+ or ) (1 - 1-dose 75+ series) 2028 Procedures Procedure Name Priority Date/Time Associated Diagnosis Comments NM BONE DENSITY Routine 01/27/2025 11:01 AM CDT from Last 3 Months Results * NM BONE DENSITY (01/27/2025 11:01 AM CDT) Anatomical Region Laterality Modality Nuclear Medicine Guanaco Dubois MD NM ORDERABLES Final Result from Last 3 Months Insurance MEDICARE PART A AND B [facility] Care Teams Contact Lens Inspector Relationship Specialty Start Date End Date Demond Ruth MD [address] [facility] [address] [place] [id number] PCP - General Family Practice 10/05/24
[2025-03-07 11:37] LABS: Hematocrit 36.0 % (37.0-47.0); Hemoglobin 12.4 g/dL (12.0-15.0); Immature Granulocyte Percent A 0.5 % (0-0.5); Lymphocytes Absolute Auto 1.29 K/mm3 (0.9-3.2); Mean Corpuscular HGB Conc 34.4 g/dl (32-36); Mean Corpuscular Hemoglobin 34.3 pg (26-34); Mean Corpuscular Volume 99.4 fl (80-100); Nucleated Red Blood Cells Absolute Auto 0.000 K/mm3 (0.0-0.012); Nucleated Red Blood Cells Perc 0.0 % (0.0-0.2); Platelet Count Result 141 k/mm3 (150-375); Red Blood Count 3.62 M/mm3 (4.2-5.4); White Blood Count 4.1 K/mm3 (4.5-10.0)
[2025-03-07 12:09] LABS: Alanine Aminotransferase 13 U/L (6-35); Albumin Level 3.9 g/dL (3.5-5.1); Alkaline Phosphatase 96 U/L (38-126); Anion Gap 7 mmol/L (4-12); Aspartate Amino Transferase 18 U/L (14-36); Bilirubin,Total 0.6 mg/dL (0.2-1.3); Blood Urea Nitrogen 11 mg/dL (7-17); Calcium 9.0 mg/dL (8.4-10.2); Carbon Dioxide 27 mmol/L (22-30); Chloride 104 mmol/L (98-107); Estimated Glomerular Filt Rate 52; Glucose 86 mg/dL (65-110); Potassium 3.9 mmol/L (3.4-5.0); Sodium 138 mmol/L (137-145); Total Protein 6.4 g/dL (6.3-8.2)
== END 2025-03-07 11:14 | disposition home or self-care (01) ==
PROVIDERS: PCP Family Medicine; Visit Provider Internal Medicine Hematology & Oncology
DX: C50.911 Malignant neoplasm of unspecified site of right female breast (principal)
CPT/HCPCS: 36415; 80053; 85025; 86300

== ENCOUNTER 2025-07-23 14:22 | Outpatient (CLI) | payer MEDICARE, BC, SELFPAY ==
--- OUTSIDE RECORDS SUMMARY | 2021-05-27 01:40 | XMS_ITS | Continuity of Care Document ---
Author Organization [facility] Address [id number] [place] [address] [address] [place] [address] Phone Care Team Providers Care Hydrator Operator Name Role Phone Romel CHRISTINA MD, Florencio Unavailable Unavailable Procedures Procedure Date OPHTHALMIC BIOMETRY CATARACT SURG W/IOL, 1 STAGE OPHTHALMIC BIOMETRY CATARACT SURG W/IOL, 1 STAGE PHARMACY 2 EYES Advance Directives Directive Yes / No Effective Date File Name No Information Encounters Encounter Description Practice Location Reason(s) For Visit Diagnoses Date Provider Providers Copied on Encounter Ophthalmology [facility], [address] [place] [address], [id number], tel:[phone] [address] [place] [address] No Information 1 Romel Matias. [address], [address], [place], [place], [id number] , [place]. tel: [phone] Referring Provider: Florencio Sheth, [address], [place], [address] . tel:[phone] Ophthalmology [facility], [address] [place] [address], [id number], tel:[phone] [address] [place] [address] No Information 1 Romel Matias. [address], [address], [place], [place], [id number] , [place]. [phone] Referring Provider: Florencio Sheth, [address], [place], [address] . tel:[phone] [facility], [address], [place], [place], [id number], tel:[phone] OPH CONSULT REZA JENSEN No Information Apr- 1 Romel Matias. [address], [address], [place], [place], [id number] , [place]. tel: [phone] Family History Family Member Type Diagnosis Age At Onset No Information Payers Payer name Insurance type Covered alliance party ID Authoriza tion(s) [place] MB [id number] [facility] [id number] Social History Type Description Quantity Date Captured Comments Sex Female Smoking Status No Information Chief Complaint And Reason For Visit No Information Reason For Referral Reason For Referral No Information History Of Present Illness Encounter Date Complaint History Of Prese nt Illness No Information Functional Status Date Functional Assessmen t No Information Instructions Date Instruction Additional Infor mation No Information Assessments Type Assessment Date No Information Patient Care Teams Name Effective Dates (start - stop) Status Members No Information
--- OUTSIDE RECORDS SUMMARY | 2021-05-27 02:20 | XMS_ITS | Continuity of Care Document ---
Author Organization [facility] Address [address] [place] [address] Phone Care Team Providers Care Facilities Assistant Name Role Phone [facility], . Unavailable Unav ailable Allergies, Adverse Reactions, Alerts Substance Reaction Status Criticality tramadol Anxiety Active No Information PROPOXYPHENE HCL Rash Active No Informat ion Medications Medication Instructions Dosage Effective Dates (start - stop) Status Comments metoprolol tartrate 25 mg tablet take 1 tablet by oral route 2 times every day 25 MG - Active Aspir-81 ORAL TABLET - Active atorvastatin 40 mg tablet take 1 tablet by oral route every day 40 MG - Active Vitamin D3 25 mcg (1,000 unit) capsule - Active omeprazole 40 mg capsule,delayed release take 1 capsule by oral route every day before a meal 40 MG - Active Pred/Gati/Brom OPHTHALMIC DROPS Apply one drop to affected eye(s) three times per day - Active Procedures Procedure Date CATARACT SURG W/IOL, 1 STAGE Phenylep ketorolac opth soln CATARACT SURG W/IOL, 1 STAGE Phenylep ketorolac opth soln Advance Directives Directive Yes / No Effective Date File Name No Information Encounters Encounter Description Practice Location Reason(s) For Visit Diagnoses Date Provider Providers Copied on Encounter [facility], [address] [place] [address], [id number], [place] tel:[phone] [facility] No Information Apr- [facility] .. [address] [place] [address], [id number], [place]. tel:[phone] Referring Provider: Florencio Urena MD P, [address], [place], [address] . tel:[phone] [facility], [address] [place] [address], [id number], tel:[phone] [facility] No Information Apr- 1 [facility] .. [address] [place] [address], [id number], [place]. tel:[phone] Referring Provider: Florencio Urena MD P, [address], [place], [address] . tel:[phone] [facility], [address] [place] [address], [id number], tel:[phone] [facility] No Information Apr- 1 [facility] .. [address] [place] [address], [place], [place], [id number], . tel:[phone] Family History Family Member Type Diagnosis Age At Onset No Information Payers Payer name Insurance type Covered alliance party ID Authorcristela melara(s) [place] MB [id number] [facility] [id number] Social History Type Description Quantity Date Captured Comments Alcohol Use Details Unknown Caffeine Use Details Unknown Tobacco Use Status No Information Smoking Status Heavy tobacco smoker Sex Female Vital Signs Date / Time: Height Weight BMI Pulse Rate Blood Pressure Temperature Respiratory Rate Body Surface Area Head Circumference Head Circ. Percentile Wt./Vinay. Percentile BMI percentile Pulse Ox Inhaled Ox 8:21 AM 58 /min 98.10 F 18 /min 98 % 54 /min 168/82 mm[Hg] 16 /min 97 % Chief Complaint And Reason For Visit No Information Reason For Referral Reason For Referral No Information History Of Present Illness Encounter Date Complaint History Of Prese nt Illness No Information Functional Status Date Functional Assessmen t Pain Score 0/10 Instructions Date Instruction Additional Infor mation No Information Assessments Type Assessment Date No Information Patient Care Teams Name Effective Dates (start - stop) Status Members No Information
[2025-07-23 14:38] LABS: Hematocrit 35.3 % (37.0-47.0); Hemoglobin 12.1 g/dL (12.0-15.0); Immature Granulocyte Percent A 0.0 % (0-0.5); Immature Platelet Fraction Pct 15.9 % (0.9-11.2); Lymphocytes Absolute Auto 1.06 K/mm3 (0.9-3.2); Mean Corpuscular HGB Conc 34.3 g/dl (32-36); Mean Corpuscular Hemoglobin 35.5 pg (26-34); Mean Corpuscular Volume 103.5 fl (80-100); Nucleated Red Blood Cells Absolute Auto 0.000 K/mm3 (0.0-0.012); Nucleated Red Blood Cells Perc 0.0 % (0.0-0.2); Platelet Count Result 138 k/mm3 (150-375); Red Blood Count 3.41 M/mm3 (4.2-5.4); White Blood Count 4.3 K/mm3 (4.5-10.0)
[2025-07-23 14:41] LABS: Schistocytes None Seen
[2025-07-23 14:43] LABS: Macrocytosis 1+ (NORMAL)
[2025-07-23 15:35] LABS: Alanine Aminotransferase 12 U/L (6-35); Albumin Level 3.5 g/dL (3.5-5.1); Alkaline Phosphatase 83 U/L (38-126); Anion Gap 4 mmol/L (4-12); Aspartate Amino Transferase 18 U/L (14-36); Bilirubin,Total 0.8 mg/dL (0.2-1.3); Blood Urea Nitrogen 9 mg/dL (7-17); Calcium 7.6 mg/dL (8.4-10.2); Carbon Dioxide 24 mmol/L (22-30); Chloride 110 mmol/L (98-107); Estimated Glomerular Filt Rate 53; Glucose 114 mg/dL (65-110); Potassium 4.1 mmol/L (3.4-5.0); Sodium 138 mmol/L (137-145); Total Protein 6.1 g/dL (6.3-8.2)
--- OUTSIDE RECORDS SUMMARY | 2025-07-23 17:03 | XMS_ITS | Clinical Summary ---
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 Gender Identity Not on file Sexual Orientation Not on file Plan of Treatment Health Maintenance Due Date Last Done Comments Hepatitis C Virus (HCV) Screening 1955 TdaP Immunization 1955 Cologuard 1998 Colonoscopy 1998 Colorectal Cancer Screening 1998 Immunochemical Fecal Occult Blood 1998 Pneumococcal Immunization (5 0+ years) (1 of 1 - PCV) 12/02/2003 Zoster Immunization (1 of 2) 12/02/2003 Influenza Immunization (#1) 2025 SARS-COV-2 Immunization ( - 2023- season) 2025 Respiratory Syncytial Virus (RSV) Immunization (Adult) (1 - 1-dose 75+ series) 2028 Hepatitis B Immunization Aged Out No longer eligible based on patient's age to complete this topic Human Papillomavirus (HPV) Immunization Aged Out No longer eligible b ased on patient's age to complete this topic Meningococcal Immunization (ACWY) Aged Out No longer eligible based on patient's age to complete this topic Rotavirus Immunization Aged Out No lo nger eligible based on patient's age to complete this topic
== END 2025-07-23 14:23 | disposition home or self-care (01) ==
LOC: ANHLAB 14:23
PROVIDERS: PCP Family Medicine; Visit Provider Internal Medicine Hematology & Oncology
DX: C50.911 Malignant neoplasm of unspecified site of right female breast (principal)
CPT/HCPCS: 36415; 80053; 85025; 85055; 86300

== ENCOUNTER 2025-08-02 13:14 | Outpatient (CLI) | payer MEDICARE, BC, SELFPAY ==
--- NOTE | ~2025-08-02 | CT_ITS ---
CHEST ABDOMEN PELVIS WITH CONTRAST CLINICAL HISTORY: malignant neoplasm of right female breast . COMPARISON: None TECHNIQUE: Helical CT performed from thoracic inlet to symphysis pubis IV contrast information not listed in PACS Coronal, sagittal reformats. Multi planar MIPS CT images acquired with automatic exposure control for dose reduction DLP: 1543 mGy-cm FINDINGS: CHEST- Lungs/Pleura: Clear. Thoracic Aorta: No dissection. No aneurysm. Pulmonary arteries: Normal caliber. Heart: Unremarkable. Tracheobronchial tree: Patent. Nodes: No enlarged nodes. Small calcification right hilum. Bones: No acute bony abnormality. Soft tissues: Breast implants. ABDOMEN/PELVIS- Liver: A few cysts. Gallbladder: Removed. Spleen: Enlarged.. Pancreas: Unremarkable. Adrenal glands: Unremarkable. Kidneys: Right kidney- No hydronephrosis. No renal stones. A few cysts, some prominent. Left kidney- No hydronephrosis. No renal stones. A few cysts, some prominent. Retroaortic renal vein. Distal esophagus/stomach: Unremarkable. Small bowel loops: Normal caliber and wall thickness. Colon: Diverticula. Normal caliber and wall thickness. Normal RLQ appendix. Nodes: No enlarged nodes. Peritoneum: No ascites. No free air. Urinary bladder: Unremarkable. Uterus: Small probable fibroids. Mild thickening of endometrial canal. Nabothian cyst. Adnexa: Cystic focus right side. Bones: No acute bony abnormality. Soft tissues: Unremarkable. Aorta: No aneurysm or dissection. IVC: Unremarkable. Main portal vein/SMV/splenic vein: Patent. IMPRESSION: CHEST- 1. No evidence of malignancy or acute abnormality. ABDOMEN/PELVIS- 1. Mild thickening of endometrial canal. Recommend transvaginal sonography. 2. Otherwise no evidence of malignancy or acute abnormality. Reviewed, dictated and finalized at location R. NG COORDINATOR
--- OUTSIDE RECORDS SUMMARY | 2025-08-02 10:15 | XMS_ITS | Encounter Summary ---
Author Organization [facility] [employer] [facility] Address [address] [place] [address] Care Team Providers Care Windows 7 Deployment Lead Name Role Phone Demond Ruth MD Primary Care Provider [phone] Reason for Referral * CT Scan (Urgent) - Closed Specialty Diagnoses / Procedures Referred By Dontaac t Referred To Contact Diagnoses Malignant neoplasm of right female breast, unspecified estrogen receptor status, unspecified site of breast (CMS/HCC) Procedures CT CHEST ABDOMEN PELVIS W CONT Guanaco Dubois MD [address] [place] [address] Phone: tel: fax: [place] [address] Referral ID Status Reason Start Date Expiration Date V isits Requested Visits Authorized [id number] Closed STL CTS 08/02/2025 09/02/2026 1 1 DATABASE ADMINISTRATOR Reason for Visit * Reason Comments Cancer Follow Up Encounter Details Date Type Department Care Team (Late st Contact Info) Description 08/02/2025 10:15 AM SQL DATABASE ADMINISTRATOR Office Visit [facility] Oncology and Hematology [facility] [address] [facility] [address] [place] [address] Guanaco Dubois MD [address] [place] [address] Malignant neoplasm of right female breast, unspecified estrogen receptor status, unspecified site of breast (CMS/HCC) (Primary Dx) Social History Tobacco Use Types Packs/Day Years [...] on file documented as of this encounter Last Filed Vital Signs Vital Sign Reading Time Taken Comments Blood Pressure 139/80 08/02/2025 10:19 AM SQL DATABASE ADMINISTRATOR Pulse 86 08/02/2025 10:19 AM SQL DATABASE ADMINISTRATOR Temperature 36.1 C (96.9 F) 08/02/2025 10:19 AM SQL DATABASE ADMINISTRATOR Respiratory Rate 15 08/02/2025 10:1 9 AM SQL DATABASE ADMINISTRATOR Oxygen Saturation 96% 08/02/2025 10: 19 AM SQL DATABASE ADMINISTRATOR Inhaled Oxygen Concentration - - Weight 107.9 kg (237 lb 12.8 oz) 2024 10:19 AM SQL DATABASE ADMINISTRATOR Height - - Body Mass Index 39.57 02/23/2024 3:31 PM CDT documented in this encounter Progress Notes * Guanaco Dubois MD - 08/02/2025 10:35 AM CST HEMATOLOGY / ONCOLOGY PROGRESS NOTE Patient Identification: Name: Claudio Negrete Age: 69 y.o. 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 Negative margins. Status post 1 lymph node negative for metastatic carcinoma. 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 Previously patient had ultrasound-guided biopsy of the right breast done that showed T1 N0 M0 stageIA invasive papillary carcinoma status post right breast 11:00 ultrasound-guided biopsy done on February 09, 2024 that showed invasive papillary carcinoma grade 2 ER 95% positive NJ 95% positive HER2/neunegative with Ki-67 of 5 to 10%. Oncotype DX recurrence score 0 CURRENT TREATMENT Tamoxifen 20 mg daily started in February 2025. TREATMENT HISTORY Status post bilateral mastectomy and reconstruction done on May 16, 2024. Anastrozole 1 mg daily started February 2024. Discontinued due to osteoporosis. SUBJECTIVE Patient came to the office for follow-up visit. She has been taking tamoxifen and having some itching issues. Denies any new lumps bumps and lymphadenopathy. Weight and appetite stable. No other new complaints. Review of system Constitutional: Patient did not mention fevers, sweats, denies any tiredness and fatigue, weight and appetite stable HEENT: Patient did not mention sinus congestion, hearing or vision problems Respiratory: Patient did not mention cough, dyspnea, wheeze Cardiovascular: Patient did not mention chest pain, exertional chest pressure/discomfort, nausea, syncope, shortness of breath GI: Patient did not mention constipation, diarrhea, dsyphagia, reflux symptoms, vomiting, melena, denies any nausea vomiting : Patient did not mention dysuria, frequency, incontinence, urgency Integumentary system: no lymphadenopathy, sweats, flushing Musculoskeletal: Patient not mention: myalgia, arthralgia Neurological: Patient did not mention blurry or disturbed vision, numbness/weakness, dizziness Skin: No lumps, bumps or rashes. 12 point review of system was reviewed Objective: Vital signs in last 24 hours: As per nursing note Exam: HEENT: Atraumatic, external ears normal, nose normal, oropharynx moist, no pharyngeal exudates. no sinus tenderness Neck- normal range of motion, no tenderness, supple Respiratory: No respiratory distress, normal breath sounds, no rales, no wheezing Breasts: Symmetric, No masses, No nipple discharge. Cardiovascular: Normal rate, normal rhythm, no murmurs, no gallops, no rubs GI: Soft, nondistended, normal bowel sounds, nontender, no splenomegaly, no hepatomegaly, no mass, no rebound, no guarding : No costovertebral angle tenderness Musculoskeletal: No edema, no tenderness, no deformities. Back- no tenderness Integument: Well hydrated, no rash, Digits and nails inspection normal Lymphatic: No lymphadenopathy noted Neurologic: Alert & oriented x 3, CN 2-12 normal, normal motor function, normal sensory function, no focal deficits noted Bilateral chest wall examination showed postmastectomy and reconstructive changes without any masses and lymphadenopathy. Exam as above PATH LABS Labs from September 25 showed creatinine 1.0 WBC 4.1 hemoglobin 12.5 platelet 130,000 CA 15-3 22 Labs from March 07 showed WBC 4.1 hemoglobin 12.4 platelet 141,000 creatinine 1.0 CA 15-3 35 Labs from July 23 showed WBC 4.3 hemoglobin 12.1 platelet 138,000 creatinine 1.0 bilirubin 0.8 CA 15-3 38.1 Assessment: Plan: There are no active problems to display for this patient. 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 Negative margins. Status post 1 lymph node negative for metastatic carcinoma. 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 Previously patient had ultrasound-guided biopsy of the right breast done that showed T1 N0 M0 stageIA invasive papillary carcinoma status post right breast 11:00 ultrasound-guided biopsy done on February 09, 2024 that showed invasive papillary carcinoma grade 2 ER 95% positive NJ 95% positive HER2/neunegative with Ki-67 of 5 to 10%. Oncotype DX recurrence score 0 Adjuvant chemotherapy was not recommended. Anastrozole was discontinued and tamoxifen started March 14, 2025 due to osteoporosis. There is no evidence of relapse or disease on my examination. Labs showed further increase in the tumor marker. I will order CT chest abdomen and pelvis now and phone visit in 2 weeks. I will continue to see her back in 3 months with repeat labs. Osteoporosis. She we will continue Prolia injections along with vitamin D and calcium. Last bone density was done in December 2024. History of stroke. Stable on aspirin. Hypertension. Stable on losartan. Phone visit in 1 week and follow-up in 3 months 08/02/2025 Guanaco Dubois MD DATABASE ADMINISTRATOR documented in this encounter Plan of Treatment Upcoming Encounters Date Type Department Care Team (Late st Contact Info) Description 08/09/2025 4:30 PM SQL DATABASE ADMINISTRATOR Telephone Check Up [facility] Oncology and Hematology [facility] [address] [facility] [address] [place] [address] Guanaco Dubois MD [address] [facility] [address] [place] [address] 11/02/2025 11:45 AM SQL DATABASE ADMINISTRATOR Office Visit [facility] Oncology and Hematology [facility] [address] [facility] [address] [place] [phone] Guanaco Dubois MD [address] [facility] [address] [place] [address] Scheduled Orders Name Type Priority Associated Diagnoses Orde r Schedule CT CHEST ABDOMEN PELVIS W CONT Imaging Stat Malignant neoplasm of right female breast, unspecified estrogen receptor status, unspecified site of breast (CMS/HCC) Expected: 08/03/2025, Expires: 08/02/2026 CANCER ANTIGEN 15-3 Lab Routine Malignant neoplasm of right female breast, unspecified estrogen receptor status, unspecified site of breast (CMS/HCC) Expected: 10/25/2025, Expires: 08/02/2026 CBC WITH DIFFERENTIAL Lab Stat Malignant neoplasm of right female breast, unspecified estrogen receptor status, unspecified site of breast (CMS/HCC) Expected: 10/25/2025, Expires: 08/02/2026 COMPREHENSIVE METABOLIC PANEL Lab Stat Malignant neoplasm of right female breast, unspecified estrogen receptor status, unspecified site of breast (CMS/HCC) Expected: 10/25/2025, Expires: 08/02/2026 documented as of this encounter Visit Diagnoses Diagnosis Malignant neoplasm of right female breast, unspecified estrogen receptor status, unspecified site of breast (CMS/HCC)- Primary documented in this encounter Care Teams Windows 7 Deployment Lead Relationship Specialty Start Date End Date Demond Ruth MD [address] [facility] [address] [place] [address] PCP - General Family Practice 10/05/24 documented as of this encounter
--- OUTSIDE RECORDS SUMMARY | 2025-08-02 14:49 | XMS_ITS | Clinical Summary ---
Author Organization [facility] Address [address] [place] [address] Phone Care Team Providers Care Underground Truck Operator Name Role Phone Unavailable Primary Care Provider Unavailabl e Social History Tobacco Use Types Packs/Day Years Used Date Smoking Tobacco: Never Assessed Comments Unknown Sex and Gender Information Value Date Recorded Sex Assigned at Not on file Legal Sex Female 3:57 AM CHEMIST PHYSICAL Gender Identity Not on file Sexual Orientation [...]
--- OUTSIDE RECORDS SUMMARY | 2025-08-02 14:49 | XMS_ITS | Clinical Summary ---
Author Organization [facility] [employer] Address [address] [place] [address] Care Team Providers Care Patient Services Technician Name Role Phone Demond Ruth MD Primary Care Provider [phone] Allergies Active Allergy Reactions Criticality Noted Date [...] Take 81 mg by mouth daily. Active tamoxifen (NOLVADEX) 20 mg tablet Take 1 Tablet (20 mg) by mouth daily. 90 Tablet 3 03/14/2025 Active Active Problems No known active problems Encounters Date Type Department Care Team Description 08/02/2025 10:15 AM INFO ANALYST Office Visit [facility] Oncology and Hematology - [place] [address] [place] [address] Guanaco Dubois MD Malignant neoplasm of right female breast, unspecified estrogen receptor status, unspecified site of breast (CMS/HCC) (Primary Dx) 07/24/2025 Orders Only [facility] Oncology and Hematology [place] [address] [place] [address] Guanaco Dubois MD 06/20/2025 External Device Data STL ABSTRACTION Provider, Abstract 06/20/2025 Telephone [facility] Oncology and Hematology [place] [address] [address] [place] [address] Guanaco Dubois MD labs for appt 06/19/2025 External Device Data STL ABSTRACTION Provider, Abstract 05/22/2025 External Device Data STL ABSTRACTION Provider, Abstract 05/15/2025 External Device Data STL ABSTRACTION Provider, Abstract [...] Comments Blood Pressure 139/80 08/02/2025 10:19 AM INFO ANALYST Pulse 86 08/02/2025 10:19 AM INFO ANALYST Temperature 36.1 C (96.9 F) 08/02/2025 10:19 AM INFO ANALYST Respiratory Rate 15 08/02/2025 10:1 9 AM INFO ANALYST Oxygen Saturation 96% 08/02/2025 10: 19 AM INFO ANALYST Inhaled Oxygen Concentration - - Weight 107.9 kg (237 lb 12.8 oz) 2024 10:19 AM INFO ANALYST Height 165.1 cm (5' 5) 02/23/2024 3:31 PM CDT Body Mass Index 39.57 02/23/2024 3:31 PM CDT Plan of Treatment Upcoming Encounters Date Type Department Care Team (Late st Contact Info) Description 08/09/2025 4:30 PM INFO ANALYST Telephone Check Up [facility] Oncology and Hematology [facility] [address] [place] [address] Guanaco Dubois MD [address] [facility] [address] [place] [address] 11/02/2025 11:45 AM INFO ANALYST Office Visit [facility] Oncology and Hematology [facility] [address] [facility] [address] [place] [address] [place] [address] [place] [address] [place] [address] Health Maintenance Due Date Last Done Comments DTAP/TDAP/TD VACCINES (1 - Tdap) 1972 Traditional Medicare (ACO) A nnual Wellness Visit 1972 FIT-DNA Q 3 years 1998 FIT/FOBT Q 1 year 1998 Flex Sig/CT Colonography Q 5 years 1998 PNEUMOCOCCAL VACCINE 50+ YEA RS (1 of 1 - PCV) 12/02/2003 ZOSTER VACCINE (1 of 2) 12/02/2003 BREAST CANCER SCREENING 02/08/2025 02/09/2024 INFLUENZA VACCINE (#1) 2025 COVID-19 Vaccine ( - season) 2025, 11/20/2020 RSV VACCINE (60+ or ) (1 - 1-dose 75+ series) 2028 OSTEOPOROSIS SCREENING 01/27/2030 01/27/2025 COLORECTAL SCREENING 02/01/2035 02/01/2025, 02/02/20 25 Colorectal Cancer Screening 02/01/2035 Procedures Procedure Name Priority Date/Time Associated Diagnosis Comments CHG CA 15 3 Routine 07/23/2025 2:06 PM INFO ANALYST COMPREHENSIVE METABOLIC PANEL Routine 07/23/2025 2:02 PM INFO ANALYST CBC WITH AUTODIFFERENTIAL Routine 2024 1:55 PM INFO ANALYST from Last 3 Months Results * CHG CA 15 3 (07/23/2025 2:06 PM INFO ANALYST) us Guanaco Dubois MD CHG - LABORATORY Final Result * COMPREHENSIVE METABOLIC PANEL (07/23/2025 2:02 PM INFO ANALYST) Blood us Guanaco Dubois MD CHEMISTRY ORDERABLES Final Resu lt * CBC WITH AUTODIFFERENTIAL (07/23/2025 1:55 PM INFO ANALYST) Blood us Guanaco Dubois MD HEMATOLOGY ORDERABLES Final Res ult from Last 3 Months Insurance MEDICARE PART A AND B [facility] Care Teams Patient Services Technician Relationship Specialty Start Date End Date Demond Ruth MD [address] [address] PCP - General Family Practice 10/05/24
--- OUTSIDE RECORDS SUMMARY | 2025-08-02 14:49 | XMS_ITS | Encounter Summary ---
Author Organization [facility] Address [address] [place] [address] Care Team Providers Care Welfare Project Manager Name Role Phone Unavailable Primary Care Provider Unavailabl e Encounter Details Date Type Department Care Team (Late st Contact Info) Description 11/20/2021 Lab Requisition [facility] DermPath Lab [address] [facility] [place] [address] Yoel Coles DO [address] [id number] Social History Tobacco Use Types Packs/Day Years [...] AM CDT) Case Report Dermatopathology Report Case: [id number] Authorizing Provider: Yoel Coles DO Collected: 11/18/2021 12:00 AM Ordering Location: [facility] Derm[facility] Lab Received: 11/20/2021 09:33 AM Pathologist: [...] specimen consists of a punch biopsy measuring [id number]. The specimen is inked and bisected.Jar 0. [...] characteristic determined by the Dermatopathology Laboratory at [facility], directed by Dr. Yannick Sanders. These tests need not be, and therefore are not, approved by the [place] Food and Drug Administration. The tests are used for clinical purposes. Billing Codes Specimen Charges Stain Charges 10784 1 16794 1 2 4:42 PM CDT DERMATOPATHOLOGY LABORATORY Embedded Images 2 4:42 PM CDT DERMATOPATHOLOGY LABORATORY Pathology/Cytolog y TISSUE SPECIMEN FROM SKIN / Unknown 11/18/2021 11/20/2021 9:33 AM CDT us Yoel Coles DO LAB - PATHOLOGY/CYTOLOGY ORDER CATRACHITA Final Result DERMATOPATHOLOGY LABORATORY [facility] - Department of Dermatology [facility] Medicine [address] [place] [address], [address] [phone] documented in this encounter Visit Diagnoses Not on filedocumented in this encounter
--- OUTSIDE RECORDS SUMMARY | 2025-08-02 14:49 | XMS_ITS | Clinical Summary ---
Author Organization [facility] [employer] Address [address] [place] [address] Care Team Providers Care Tank Truck Engine Mechanic Name Role Phone Unavailable Primary Care Provider Unavailabl e Source Comments [facility],non-owned Affiliates and Associated Physician Practices is amultiple site organization consisting of ambulatory clinics and hospital sitesin [place], [place], [place] and [place]. This disclosure is being madepursuant to the Care Everywhere program and may not contain all information available regarding this patient. Last updated 18.[facility] [employer] Social History Tobacco Use Types Packs/Day Years [...] 12/02/2003 ZOSTER VACCINE (1 of 2) 12/02/2003 DEPRESSION SCREENING 08/30/2024 COVID-19 VACCINE (1 - 2024-2 6 season) 2025 INFLUENZA VACCINE (#1) 2025 Respiratory Syncytial Virus [...] to complete this topic Insurance MEDICARE MEDICARE [facility] SELF PAY NO INSURANCE Member Subscriber Plan / Payer (Ef fective for All Dates) Name:Dina Negrete Member ID:Not on file Relation to Subscriber:Not on file Name:DINA NEGRETE Subscriber ID:Not on file (Home) Address: [address] [place] [address] Payer ID:Not on file Group ID:Not on file Type:Self Pay [facility] * Guarantor: DINA NEGRETE Account Type Relation to Patient Date of Phone Billing Address Personal/Family [address] [place] [address] MEDICARE [place] * Guarantor: DINA NEGRETE Account Type Relation to Patient Date of Phone Billing Address Personal/Family [address] [place] [address] MEDICARE [facility] * Guarantor: DINA NEGRETE Account Type Relation to Patient Date of Phone Billing Address Personal/Family [address] [place] [address] MEDICARE [place]M * Guarantor: DINA NEGRETE Account Type Relation to Patient Date of Phone Billing Address Personal/Family [address] [place] [address]
== END 2025-08-02 13:15 | disposition home or self-care (01) ==
PROVIDERS: PCP Family Medicine; Visit Provider Internal Medicine Hematology & Oncology
DX: C50.911 Malignant neoplasm of unspecified site of right female breast (principal); R93.89 Abnormal findings on diagnostic imaging of other specified body structures
CPT/HCPCS: 71260; 74177; Q9967